=== PATIENT | female | born 1950 | race Caucasian/White ===

== ENCOUNTER → 2020-02-14 09:19 | Outpatient (CLI) | payer MEDICARE, OTHER, SELFPAY ==
[2020-02-14 10:19] LABS: COVID19 -Nasal RAPID Negative (Negative)
== END ==
PROVIDERS: Visit Provider Physician Assistant
DX: Z11.59 Encounter for screening for other viral diseases (principal)
CPT/HCPCS: 87635

== ENCOUNTER 2020-02-16 06:32 | Inpatient (IN) | payer MEDICARE, OTHER, SELFPAY ==
[2020-02-13 13:39] VITALS: BMI 27.9
[2020-02-15] VITALS (16 sets, daily range): BP systolic 121–161; BP diastolic 53–76; PULSE 68–91; RESP 8–16; TEMP 35.9–36.7; O2SAT 94–100; BMI 26.9
--- NOTE | 2020-02-15 | DI.RAD.S_ITS ---
PROCEDURE: XR LUMBAR SPINE 2-3V INDICATIONS: L4-L5 TLIF TECHNIQUE: 2 views of the lumbar spine were acquired. COMPARISON: [facility], CR, XR LUMBAR SPINE WITH OLBIQUES PLUS FLEXION EXTENSION, 11/08/2019, 10:41. [facility], MR, MR LUMBAR SPINE WITHOUT CONTRAST, 12/27/2019, 12:30. FINDINGS: Discectomy, placement of disc prosthesis and posterior fusion at L4-L5. There is grade 1 anterolisthesis of L4 on L5, unchanged. IMPRESSION: Expected postsurgical change. Dictated by: Shante Gant M.D. on 02/15/2020 at 12:35 Approved by: Shante Gant M.D. on 02/15/2020 at 12:37
[2020-02-15] MEDS: LACTATED RINGERS 1,000 ML 42 ML IV ×2 (07:19→09:25)
--- NOTE | 2020-02-15 07:22 | PM.PREOP ---
Pre-operative Note COVID-19 COVID-19 status: Negative Result date/Date tested (Pos, Neg/Pending): 02/14/20 Interval Note History & Physical reviewed/Exam performed by Physician: Yes Changes to H&P: No
--- NOTE | 2020-02-15 07:34 | SUR.OPER ---
Prone on spine table, head in foam head support, padded chest and pelvic supports, gel pad at knees, lower legs supported by pillows; nipples, genitalia and toes free of pressure, arms secured on foam padded arm boards at <90 degrees abduction. Tape over blanket at thigh secured to table.
[2020-02-15] MEDS: GABAPENTIN 600 MG TABLET 1200 MG PO ×2 (07:37→19:54)
[2020-02-15] MEDS: CEFAZOLIN 2 GM/100 ML FROZ.PIGGY IV ×4 (07:41→23:30)
--- NOTE | 2020-02-15 07:47 | P.OP_ITS ---
Operative Date/Time/Diagnoses Date of procedure: 02/15/20 Time of procedure: 11:51 Pre-op diagnosis: Lumbar stenosis with radiculopathy Lumbar spondylolisthesis Post-op diagnosis: same Procedure & Clinicians Procedure: L2-3, L3-4, L4-5 laminectomies L4-5 TLIF (posterior/posterior interbody fusion) with cage L4, L5 screws Iliac crest bone graft aspirate Use of microscope Placement of epidural catheter Same procedure as scheduled: Yes Indications: [age] year old female with intractable pain from stenosis. They had failed conservative management and requested operative intervention. Risks and benefits of surgery were discussed and appropriate consents were obtained. Surgeon: Mateo Torres [employer] Truck Driver: Bridget Mendez Anesthesia Type: General Operative Notes Findings: None Closure Type: primary Specimen(s): none sent Prosthetic devices, grafts, tissues, transplants, or devices: NuVasive MAS Reline screws Globus Rise cage Applied: catheter Estimated Blood Loss (mL): 50 Procedure in detail: The patient was brought to the operating room and intubated on the table. A time-out was performed. They were then rolled over to the well- padded Fadi table in the prone position. Preoperative antibiotics were given. The back was prepped and draped in the standard sterile fashion. Using fluoroscopy, a 4 cm longitudinal incision was made to the well marked right of the midline. We used Bovie to come down to and split the lumbodorsal fascia. Using fluoroscopy and monitoring, we then percutaneously placed Jamshidi needles down the pedicles of L4 and L5 on the Right side. These were changed out to guidewires and then we tapped and then placed the NuVasive MAS Reline screw shanks. We then opened up the retractors and used Bovie to clear up the posterolateral gutter as well as medially along the lamina to the spinous processes. A bur was used to decorticate the transverse processes. We brought in the microscope. Using a combination of bur and Kerrison rongeurs, a laminectomy was performed from the Right side at L4-5. We cleared over past the midline and carefully depressed the dura until we were able to decompress the opposite side. We cleared out the neural foramen. This completed the laminectomy at L4-5. This was separate and distinct from the TLIF approach as we were decompressing the canal and the nerves, specifically the exiting L4 nerve root as well as the traversing L5 and S1 nerve roots and the central canal. We then began the TLIF prep. A complete facetectomy was performed on this side at L4-5. We carefully cleaned up the remainder of the foramen until we could easily retract the exiting root as well as clearing medially below the dura and expose the disc space. The disc was prepped with bipolar and then an annulotomy was performed. We performed a diskectomy using a combination of paddles, angélica, pituitaries, and curettes. We distracted the disc using a paddle and locked the retractor in an open position. We then filled the disc space with Osteocel bone graft. We then placed the globus rise cage under fluoroscopy and then filled this in with more bone graft. The distraction on the retractor was released to compress down. This completed the posterior interbody fusion portion of the TLIF at L4-5. We then rotated the retractor up a level and exposed it. A laminectomy was performed with a bur and a Kerrison. We carefully reach across the canal and depressed the dura and decompressed the opposite side to clean up the entire central canal in all the traversing nerve roots and cleaned out the exiting L4 roots. We then moved the retractor up 1 more level and gutter exposure. We completed a laminectomy with a bur and Kerrison. We decompressed the central canal as well as the neural foramen. This level was exceedingly tight with sev ere facet hypertrophy there were almost touching each other and was the tightest of all of the 3 levels. Once this was done, we checked with a ball probe and everything was open. An epidural catheter was then prepped with 4 mL of 0.5% Marcaine, 1 mg Stadol, 4 mg Duramorph, and 100 mcg of fentanyl and placed in the spinal canal by carefully depressing the dura and advancing it 6 cm cephalad under the remaining lamina without resistance. We then placed the screw heads, mariana, and locked down the set screws. The wound was copiously irrigated. A small stab incision was made over the PSIS. We used a Jamshidi needle to aspirate several mL of bone marrow from the pelvis. This was mixed with the remaining Osteocel and combined with all of the locally harvested bone graft and placed in the posterolateral gutter for the posterior fusion of the TLIF at L4- 5. The muscle fascia was closed. The epidural catheter was then injected without resistance and the catheter was pulled. We then went to the opposite side. Again using fluoroscopy, a 3 cm incision was made and Bovie was used to come down to split the fascia. Using neural monitoring and fluoroscopy, Jamshidi needles were advanced down the pedicles of [] on the [] side. These were switched over guidewires, tapped, and screws placed. We then placed a mariana and locked the set screws on this side. The wound was irrigated. The fascia was closed. Vancomycin powder was placed in the wounds. The superficial and skin were closed. A sterile dressing was placed. The patient was then rolled over extubated and brought to recovery room without complications. Complications: none Post-operative Condition: stable Disposition: PACU Plan for aftercare: Inpatient. Anticipate 2-3 days. Up with physical therapy.
[2020-02-15] MEDS: THROMBIN (RECOMBINANT) 5,000 UNIT VIAL 5000 UNIT TOP (08:23)
[2020-02-15] MEDS: VANCOMYCIN 1,000 MG VIAL 1000 MG TOP (08:23)
[2020-02-15] MEDS: BUPIVACAINE 0.5% (PF) 4 ML, MORPHINE-PF 4 MG, BUTORPHANOL 1 MG, fentaNYL 100 MCG INJ (10:16)
[2020-02-15] MEDS: SODIUM CHLORIDE 0.9% 1,000 ML, GENTAMICIN 80 MG IRR (11:22)
[2020-02-15] MEDS: HYDROMORPHONE 2 MG INJ IV ×2 (12:42→13:00)
[2020-02-15] MEDS: OXYCODONE/ACETAMINOPHEN 5/325 TABLET 1 TAB PO (12:45)
[2020-02-15] MEDS: HYDROMORPHONE 0.5 MG INJ IV (14:07)
[2020-02-15] MEDS: LACTATED RINGERS 1,000 ML 125 ML IV ×2 (14:08→22:56)
--- NOTE | 2020-02-15 14:33 | PC.ADMIT ---
[address] [facility] Admission Note: Safe hand off from PACU. Patient is alert and oriented, VSS, pain 6/10. 0.5mg Dilaudid given at 1420. Patient reports pain is now 4/10. Lung sounds are clear bilaterally. Bowel tones are active in all quadrants. Dressing is clean/dry/intact, ice pack applied. Patient is on LR@125ml/hr. Patient is resting comfortably. Tolerated oral intake of tuna sandwich, ice chips and ice water. Patient was educated about the use of her call light, it is within reach, bed is low and locked, bed alarm activated. The patient,Cynthia Coe,70 y/o, was given written information regarding hospital policies, unit procedures and contact persons. Patient's smoking status: Never smoker. Vital Signs - 8 hr 02/15/20 06:58 02/15/20 12:07 02/15/20 12:12 Temperature 97.4 F L 97.5 F L Pulse Rate 90 86 86 Respiratory Rate 15 8 L 10 L Blood Pressure 150/76 H 146/65 H 121/55 L Pulse Oximetry 98 96 97 02/15/20 12:17 02/15/20 12:22 02/15/20 12:36 Temperature 97.0 F L 98.0 F Pulse Rate 89 89 89 Respiratory Rate 12 12 12 Blood Pressure 131/75 146/62 H 135/76 Pulse Oximetry 96 96 97
--- NOTE | 2020-02-15 16:28 | PT.IIE ---
Current Diagnoses Other forms of scoliosis, thoracolumbar region (02/15/20) Spondylolisthesis, lumbar region (02/15/20) Spinal stenosis, lumbar region with neurogenic claudication (02/15/20) Surgery Performed Operation Date: 02/15/20 07:45 Actual Procedures p L2-5 laminectomies w/ L45 instrumented fusion w/ bone graft - Mateo Torres MD Surgical History (Last Updated 02/13/20 @ 14:20 by Naila Murillo RN) History of arthroplasty of left knee (2018) History of hysterectomy (~1999) History of tonsillectomy and adenoidectomy Hx of bilateral cataract extraction (~2014) Hx of fusion of cervical spine (~1996) Medical History (Last Updated 02/13/20 @ 14:20 by Naila Murillo RN) Arthritis Compression fracture Easy bruisability History of Mohs micrographic surgery for skin cancer HLD (hyperlipidemia) HTN (hypertension) Hypothyroid Leg fracture, right Osteoarthritis PAC (premature atrial contraction) Sciatica Skin cancer TMJ (temporomandibular joint syndrome) Physical Therapy Inpatient Evaluation/Re-Eval M1 PT/OT-IP Prior Functional Status Start: 02/15/20 14:09 Freq: NEEDED Status: Active Protocol: Document 02/15/20 15:35 DE (Rec: 02/15/20 16:02 DE [id number]) Medical Review Prior Functional Status Medical History Reviewed Yes Diet/Fluid Consistency Regular Communication WNL. No deficits noted. Able to make needs known. Mobility and Gait Modified IND for all mobility and amb with use of SPC outside and FWW inside the house at baseline. Activities of Daily Living and IADL's IND for all ADLs and IADLs at baseline. Social History Household Members spouse Living Arrangements House Number of Floors (Floors) One Floor Number of Stairs To Enter/Railing? 2 JENNIFER with R railing. Home Environment Standard Height Toilet,Walk in Shower Home Equipment Front Wheel Walker,Straight Cane,Decay Control Operator Employment Status Retired Additional Social History Comment Pt lives with , who has MS. will be available full-time to assist at home. Cousin will be staying for a week to help. M2 PT-IP Current Condition Start: 02/15/20 14:09 Freq: NEEDED Status: Active Protocol: Document 02/15/20 15:35 DE (Rec: 02/15/20 16:02 DE [id number]) Physical Therapy Current Condition Current Condition Evaluation Date 02/15/20 Treatment Diagnosis L2-5 laminectomies, L4-5 TLIF; Difficulty in walking. Onset Date 02/15/20 Precautions Lumbar Precautions Log Roll,No Twisting,Limit Bending,Lifting Restriction of 10 lbs,Gait Belt above Incisional Area M3 PT-IP Subjective Start: 02/15/20 14:09 Freq: NEEDED Status: Active Protocol: Document 02/15/20 15:35 DE (Rec: 02/15/20 16:02 DE [id number]) Subjective Physical Therapy Visit Type Type Initial Evaluation Visit Start Time 14:58 Visit Stop Time 15:27 Total Visit Minutes 29 Notes SPT Fernando led session under direct supervision of PT Rea. Number of SIGNAL TIMER Visits 0 Physical Therapy Visit Comments Patient Comments Pt is agreeable to do PT. Therapy Pain Assessment Pain When Pain Assessed During Mobility Pain Present Pain Present Pain Reported Location back Intensity 7 Scale Used Numeric Description Aching Pain Behaviors Facial Grimacing,Wincing Pain Management Techniques Timing of Activity with Medications M4 PT-IP Mobility and Gait Start: 02/15/20 14:09 Freq: NEEDED Status: Active Protocol: Document 02/15/20 15:35 DE (Rec: 02/15/20 16:02 DE [id number]) PT-Bed Mobility Assessment Rolling Type of Rolling Log Rolling,Roll to Right Level of Assist Contact Guard Assistance Supine to Sit Supine to Sit Minimal Assistance,1 Person Assistance,Bedrails Sit to Supine Sit to Supine Minimal Assistance,1 Person Assistance,Bedrails PT-Transfer Assessment Sit to and From Stand Sit to and from Stand Contact Guard Assistance,Use of Upper Extremities Equipment Transfer Assistive Device Gait Belt,Front Wheeled Walker Orthotic/Prosthetic Devices or Brace: No Transfers Transfer Destination Bed Transfer Technique Amb with FWW Transfer Ability Level of Assist Contact Guard Assistance,Use of Upper Extremities Comments Mobility Comments Pt was inclined in bed upon arrival. Pt completed supine to sit at R EOB from flat bed using logroll technique with 1P min CAR STEREO INSTALLER. Pt performed sit to stand with FWW CGA. Pt then amb ~30 ft in the room and sat back down on R side EOB. Pt demonstrated antalgic step- through gait pattern with decreased stride length and decreased feet clearance. Pt also demonstrated decreased safety awareness and poor navigation possibly d/t drowsiness from surgery. Pt performed sit to supine using logroll technique with 1P min assist for lifting the legs. Call light placed within reach . Bed alarm activated. Gait Assessment Gait Gait Assistance Required: Contact Guard Assist Distance (Feet) 30 Assistive Devices Assistive Device Gait Belt,Front Wheeled Walker Orthotic/Prosthetic Devices or Brace: No Gait Deviations General Gait Pattern Antalgic,Decreased Stride Length,Decreased Feet Clearance Factors Limiting Gait Function Factors Limiting Gait Function Decreased Activity Tolerance, Decreased Strength,Limited Range of Motion,Pain,Poor Balance,Poor Safety Awareness Comments Gait Comments See mobility comments. Stair Climbing Assessment Comments Stair Climbing Comments Not assessed. PT-Balance Assessment Sitting Balance and Reactions Static Sitting Balance Ability Normal Dynamic Sitting Balance Ability Normal Standing Balance and Reactions Static Standing Balance Ability Good Dynamic Standing Balance Ability Good M5 PT-IP Objective Assessments Start: 02/15/20 14:09 Freq: NEEDED Status: Active Protocol: Document 02/15/20 15:35 DE (Rec: 02/15/20 16:02 VT [id number]) Orientation Orientation/Cognition Level of Alertness Lethargic Orientation Name,Age,Birthday,Month,Date, Year,Day of Week,Place, Situation Language Function Ability No Deficits Noted Safety Awareness Decreased Safety Awareness Memory Description No Deficits Noted Comments Pt demonstrated drowsiness. Gross Range of Motion Lower Extremity ROM Assessment Bilaterally Impaired Strength Lower Extremity Strength Assessment Bilaterally Impaired Coordination Assessment Gross Coordination Gross Coordination WNL Sensation Assessment Sensation Gross Sensation WNL Light Touch Intact Muscle Tone Muscle Tone WNL Yes M6 PT-IP Treatment Start: 02/15/20 14:09 Freq: NEEDED Status: Active Protocol: Document 02/15/20 15:35 DE (Rec: 02/15/20 16:02 VT [id number]) Physical Therapy Treatment Education Education Provided Precautions,Post-Op Packet, Safety Other Treatments Other Treatment Performed Provided education on precautions, safety, and role of PT. M7 PT-IP Assessment and Plan Start: 02/15/20 14:09 Freq: NEEDED Status: Active Protocol: Document 02/15/20 15:35 DE (Rec: 02/15/20 16:02 VT [id number]) PT Summary Assessment and Plan Potential Rehabilitation Potential Good Status of Condition at Evaluation Evolving Summary Impairments Pain,ROM,Strength,Balance,Bed Mobility,Transfers,Gait, Activity Tolerance Assessment Summary Cynthia is a 70 yo female POD0 s /p L2-5 laminectomies and L4-5 TLIF. At baseline, pt is modified IND with use of SPC outside and FWW inside the house. Pt is IND for all ADLs at baseline. On evaluation, pt required 1P min assist for supine <> sit and CGA for sit <> stand and amb with use of FWW. Pt demonstrated drowsiness throughout the session. Pt is not safe to d/c home at this time. Pt will need to improve activity tolerance and perform 2 steps with R railing going up before d/c. PT anticipates pt will d/c home with assistance once medically cleared. Goals Bed Mobility Goal Standby Assistance Transfer Goal Standby Assistance,Front Wheeled Walker Gait Goal Standby Assistance,Front Wheel Walker Gait Distance 200 Other Goals Pt will perform 2 steps with R railing going up SBA. Days to Meet Goals 5 Frequency of Treatment Frequency Of Treatment Twice a Day Treatment Plan Physical Therapy Treatment Plan Bed Mobility Training,Transfer Training,Gait Training, Therapeutic Exercise,Balance Retraining,Post Op Education, Discharge Planning,Hot or Cold Pack,Neuromuscular Re-ed Recommendations To Nursing Amount of Assist Needed 1 Person Assist Discharge Recommendations PT Discharge Recommendations Home with Assistance Transportation Needs at Discharge Private Vehicle Treatment was provided by Fernando Bejarano, SPT and supervised by Rea Lambert, PT. I personally reviewed this note and agree with its contents.
[2020-02-15] MEDS: OXYCODONE IR 5 MG TABLET PO ×2 (19:53→23:30)
[2020-02-15] MEDS: DOCUSATE 100 MG CAPSULE PO (19:54)
[2020-02-15] MEDS: SENNOSIDES 8.6 MG TABLET 17.2 MG PO (19:54)
[2020-02-15] MEDS: diphenhydrAMINE 25 MG TABLET PO (20:03)
--- NOTE | 2020-02-15 22:19 | PC.NURSE ---
Pt presented w/ lower SPO2 on RA d/t narcotic administration, maintained prior administration of O2 NC 3L/min to get sats above 90%. Removed from O2 when SPO2 stabilized over 95% at room air. Pt GCS 15, able to arouse to voice and stay awake at any time. Pain controlled by medication. Epidural, no drain, dressing CDI, +CSM. No cardiovascular or respiratory distress. AOx4. Saw PT prior to shift, 1x assist w/ walker. Hx htn, BP elevated but stable. FC present, draining.
[2020-02-15] MEDS: hydrOXYzine pamoate 25 MG CAPSULE PO (23:40)
--- NOTE | 2020-02-15 23:52 | PC.NURSE ---
Addendum entered by Cynthia Jimenez R.N. 02/16/20 05:37: Up to chair with walker and 1 assist. States pain is 3-4/10 after movement so medicated with Oxycodone. Addendum entered by Cynthia Jimenez R.N. 02/16/20 02:34: Still having 4/10 pain so medicated with Oxycodone at this time. Addendum entered by Cynthia Jimenez R.N. 02/16/20 01:52: Complains of 5/10 back pain and too early to give additional Oxycodone so medicated with IV Dilaudid, repositioned and ice applied to back. Original Note: Patient is alert and oriented but very anxious wanting things done a specific way and getting upset when that does not happen. Breath sounds CTA with RA sat of 99%; on continuous oximetry. HRR. Denies nausea. BT present but denies flatus as yet. Indwelling catheter is patent; urine is clear yellow. Able to move self in bed. Dressing to back intact with shadow drainage noted. Complains of 4-5/10 pain in right hip and was medicated with Oxycodone + Vistaril and ice applied to back/hip. Chronic tingling in right foot/leg unchanged from pre-op. CMS is otherwise intact. Wearing bilateral calf SCD's. Fall risk score is moderate and bed alarm is activated.
[2020-02-16] VITALS (11 sets, daily range): BP systolic 108–137; BP diastolic 43–61; PULSE 88–124; RESP 16–18; TEMP 35.9–38.3; O2SAT 93–98
[2020-02-16] MEDS: HYDROMORPHONE 0.5 MG INJ 0.2 MG IV (01:48)
[2020-02-16] MEDS: OXYCODONE IR 5 MG TABLET PO ×3 (02:31→15:50)
[2020-02-16] MEDS: LEVOTHYROXINE 137 MCG TABLET PO (05:35)
[2020-02-16 05:51] LABS: Hematocrit 32.9 % (36-46); Hemoglobin 11.3 g/dL (12.0-16.0)
--- NOTE | 2020-02-16 07:24 | PM.PNPO.1 ---
Subjective Subjective Date Patient Seen: 02/16/20 Time Patient Seen: 07:24 Interval history: She is doing very well. She was already up with physical therapy yesterday afternoon. Pain is sore across the incision site of the legs feel normal again. Exam Vital Signs (past 8 hours): - 02/16/20 00:00 02/16/20 05:32 02/16/20 05:39 Temperature 96.6 F L 97.4 F L Pulse Rate 88 101 H Respiratory Rate 16 16 Blood Pressure 137/61 125/51 L Pulse Oximetry 98 95 98 Oxygen Delivery Method Room Air Oxygen Flow Rate 0 Const Orientation: alert and oriented x3 Back/Spine/Pelvis Other: Moderate drainage at the bottom of the dressing. 5/5 motor both lower extremities. Objective Labs Result Diagrams: 02/16/20 05:35 Labs: Laboratory Results - last 24 hr 02/16/20 05:35 Hgb 11.3 L Hct 32.9 L PFSH Medical History (Updated 02/13/20 @ 14:20 by Naila Murillo RN) Arthritis Compression fracture Easy bruisability History of Mohs micrographic surgery for skin cancer HLD (hyperlipidemia) HTN (hypertension) Hypothyroid Leg fracture, right Osteoarthritis PAC (premature atrial contraction) Sciatica Skin cancer TMJ (temporomandibular joint syndrome) Surgical History (Updated 02/13/20 @ 14:20 by Naila Murillo RN) History of arthroplasty of left knee (2018) History of hysterectomy (~1999) History of tonsillectomy and adenoidectomy Hx of bilateral cataract extraction (~2014) Hx of fusion of cervical spine (~1996) Social History household members: spouse Smoking Status: Never smoker alcohol intake: current Assessment & Plan Post-op Postoperative Procedures: Procedures Operation Date: 02/15/20 07:45 Actual Procedures Side Surgeon p L2-5 laminectomies w/ L45 instrumented fusion w/ bone graft Mateo Torres MD She is doing very well. Mobilize again today with physical therapy. Anticipate discharge home tomorrow. Quality VTE Deep Vein Thrombosis/Pulmonary Embolism Present on Admission: No
[2020-02-16] MEDS: SIMVASTATIN 20 MG TABLET 10 MG PO (08:41)
[2020-02-16] MEDS: FLUTICASONE 120 SPRAY/16 GM SPRAY.SUSP NASAL (08:41)
[2020-02-16] MEDS: GABAPENTIN 600 MG TABLET 1200 MG PO ×2 (08:42→19:56)
[2020-02-16] MEDS: DOCUSATE 100 MG CAPSULE PO ×2 (08:42→19:55)
[2020-02-16] MEDS: OXYCODONE IR 5 MG TABLET 10 MG PO ×4 (08:42→22:54)
[2020-02-16] MEDS: buPROPion XL 150 MG TAB PO (08:42)
[2020-02-16] MEDS: SODIUM CHLORIDE 0.9% 1,000 ML 1000 ML IV (09:59)
--- NOTE | 2020-02-16 10:37 | CM.DANOTE ---
Discharge Planning/Care Management CM Discharge Assessment Start: 02/16/20 10:37 Freq: Status: Active Protocol: Document 02/16/20 10:37 ITV (Rec: 02/16/20 10:37 ITV [id number]) Discharge Planning Assessment Advance Directives? Yes Advance Directives on File No History Provided By Patient,Medical Record Prior Living Arrangements House Household Members spouse Independent with ADL's Yes Is patient alert and oriented? Yes Discharge Plan Home Pre-Anesthesia Assessment Start: 02/13/20 13:39 Freq: Status: Complete Protocol: Document 02/13/20 13:39 CAB (Rec: 02/13/20 14:37 CAB [id number]) Pre-Anesthesia Assessment Patient Information Reviewed Via Phone Assessment Assessment Completed With Patient Diagnostic Results BMP/CMP,CBC,EKG Comment Outside labs/EKG scanned, COVID screen @ 02/13 Primary Care Provider Huang Martinez Medical Clearance Received Yes Seen Specialist in Last 12 Months Yes Specialist Seen Orthopedist Comment PCP clearance scanned Primary Language Turkish Housekeeping Manager Required No Height 165.1 cm Weight 76.204 kg Body Mass Index (BMI) 27.9 Hearing Ability Normal Visual Assist Magnifying Glass Dentition Type Teeth, Natural Present Barriers to Learning None Hx Anesthesia Reactions Yes: Horrible constipation after anesthesia Hx Family Anesthesia Reaction No Hx Malignant Hyperthermia No Hx Blood Transfusions No Anesthesia Review Requested No Power Distributor No alcohol intake current alcohol intake frequency holidays/special occasions only Smoking Status Never smoker Substance Use Type does not use Pain Present Pain Reported Musculoskeletal Symptoms Abnormal Gait,Back Pain, Difficulty Walking,Radiating Pain into Limb History of Falling (Recent or History of No ) Patient is completely paralyzed or No completely immobile Prosthesis or Orthotic Device Cane,Front Wheel Walker Mental Status Oriented to own ability Is patient on oxygen? No Does patient have GRAVES/SOB No Hx Sleep Apnea No Currently Taking a Beta Lakeshia No Can You Climb a Flight of Stairs Without Yes SOB Hx Chest Pain No Hx SOB No Hx Syncope or Dizziness No Anti-Coagulant Therapy No Has a Mold Maintenance Technician No Cardiac Testing No Hx Pacemaker/ICD No Pacemaker Rep Required? No Cardiac Clearance Received Not Applicable Diet Type At Home Regular dysphagia No Gastrointestinal Symptoms Constipation Urinary Catheter Present No Hx Urinary Self Catheterization No Diabetes No Patient No Lactating No Presence of External or Internal Medical Yes: Left knee, tay eye lens Devices Have you had any close contact with No someone diagnosed with COVID-19? Marital Status Lives With spouse Prior Living Arrangements House Number of Floors (Floors) One Floor Support System Spouse Does the Patient Have Assistance After Yes: has MS, cousin Surgery will stay to assist w/care Patient Discharge Plan Description Return Home Comment Pt advised 2-3 day length of stay per surgeon Feels Safe in Current Environment Yes Been Physically Hurt or Threatened By a No Person in Current Environment Do you have thoughts of harming yourself None or others? Are you currently considering suicide? No Do you have a plan to hurt yourself or No Plan others? Do You Have Any Spiritual Beliefs That No May Affect Your HC Choices? Do You Have Any Cultural Practices That No May Affect Your HC Choices? Comment Presbyterian Who Can We Speak to About Patient's Care Family, friends Identifying Code for Release of Patient Declines to issue Information Health Care Proxy/Next of Kin Berry () Health Care Proxy Emergency Contact Name Berry () Emergency Contact Advance Directives? Yes Advance Directives on File No Requested Patient Bring Advanced Yes Directives DOS Power of Group Practice Pediatrician Yes Power of Group Practice Pediatrician Name Berry () Power of Group Practice Pediatrician PAC Instructions Durable medical equipment, Medications to take/avoid, Nasal antibiotic,No ETOH/ petroleum product on skin DOS, NPO,Post-op transportation,Pre -surgical wash,Sensory aids, Sturdy shoes/comfortable clothes,Do not bring valuables and remove jewelry
--- NOTE | 2020-02-16 10:38 | CM.DANOTE ---
Addendum entered by Zo Mata LPN 02/16/20 11:33: Met with pt and introduced self and role. Pt confirms that her cousin Li will be staying with her to help after surgery. She says her , who carries a dx of MS is also very able to help her but is not her designated visitor as they all feel his health issues dictate that he stay home. Li will be here later today. She has not worked with the PT/OT team yet for caregiver training. Pt says she does need a FWW for home as the one she has now is very old and belonged to her . She requests that this be issues from the PT consignment closet and be billed to her insurance. Will obtain order and follow prn to assist with any other d/c needs that may arise. P: at this time: home tomorrow as per above. Original Note: Discharge Planning/Care Management DCP: assessment: case received, EMR reviewed. Pt is a 70 year old female who admitted yesterday for a scheduled spinal surgery/lumbar area. Surgeon: Dr. Torres Payer: Medicare and [employer] PCP: [facility] PT and OT are working with pt. Dr. Torres saw pt today and anticipates she will be ready for d/c by tomorrow. Will check in now with pt and follow prn. CM Discharge Assessment Start: 02/16/20 10:37 Freq: Status: Active Protocol: Document 02/16/20 10:37 ITV (Rec: 02/16/20 10:37 ITV [id number]) Discharge Planning Assessment Advance Directives? Yes Advance Directives on File No History Provided By Patient,Medical Record Prior Living Arrangements House Household Members spouse Independent with ADL's Yes Is patient alert and oriented? Yes Discharge Plan Home Pre-Anesthesia Assessment Start: 02/13/20 13:39 Freq: Status: Complete Protocol: Document 02/13/20 13:39 CAB (Rec: 02/13/20 14:37 CAB [id number]) Pre-Anesthesia Assessment Patient Information Reviewed Via Phone Assessment Assessment Completed With Patient Diagnostic Results BMP/CMP,CBC,EKG Comment Outside labs/EKG scanned, COVID screen @ 02/13 Primary Care Provider Huang Martinez Medical Clearance Received Yes Seen Specialist in Last 12 Months Yes Specialist Seen Orthopedist Comment PCP clearance scanned Primary Language French Supervisor Metal Furniture Assembly Required No Height 165.1 cm Weight 76.204 kg Body Mass Index (BMI) 27.9 Hearing Ability Normal Visual Assist Magnifying Glass Dentition Type Teeth, Natural Present Barriers to Learning None Hx Anesthesia Reactions Yes: Horrible constipation after anesthesia Hx Family Anesthesia Reaction No Hx Malignant Hyperthermia No Hx Blood Transfusions No Anesthesia Review Requested No Legislative Aide No alcohol intake current alcohol intake frequency holidays/special occasions only Smoking Status Never smoker Substance Use Type does not use Pain Present Pain Reported Musculoskeletal Symptoms Abnormal Gait,Back Pain, Difficulty Walking,Radiating Pain into Limb History of Falling (Recent or History of No ) Patient is completely paralyzed or No completely immobile Prosthesis or Orthotic Device Cane,Front Wheel Walker Mental Status Oriented to own ability Is patient on oxygen? No Does patient have GRAVES/SOB No Hx Sleep Apnea No Currently Taking a Beta Lakeshia No Can You Climb a Flight of Stairs Without Yes SOB Hx Chest Pain No Hx SOB No Hx Syncope or Dizziness No Anti-Coagulant Therapy No Has a Trust Vault Clerk No Cardiac Testing No Hx Pacemaker/ICD No Pacemaker Rep Required? No Cardiac Clearance Received Not Applicable Diet Type At Home Regular dysphagia No Gastrointestinal Symptoms Constipation Urinary Catheter Present No Hx Urinary Self Catheterization No Diabetes No Patient No Lactating No Presence of External or Internal Medical Yes: Left knee, tay eye lens Devices Have you had any close contact with No someone diagnosed with COVID-19? Marital Status Lives With spouse Prior Living Arrangements House Number of Floors (Floors) One Floor Support System Spouse Does the Patient Have Assistance After Yes: has MS, cousin Surgery will stay to assist w/care Patient Discharge Plan Description Return Home Comment Pt advised 2-3 day length of stay per surgeon Feels Safe in Current Environment Yes Been Physically Hurt or Threatened By a No Person in Current Environment Do you have thoughts of harming yourself None or others? Are you currently considering suicide? No Do you have a plan to hurt yourself or No Plan others? Do You Have Any Spiritual Beliefs That No May Affect Your HC Choices? Do You Have Any Cultural Practices That No May Affect Your HC Choices? Comment Presbyterian Who Can We Speak to About Patient's Care Family, friends Identifying Code for Release of Patient Declines to issue Information Health Care Proxy/Next of Kin Berry () Health Care Proxy Emergency Contact Name Berry () Emergency Contact Advance Directives? Yes Advance Directives on File No Requested Patient Bring Advanced Yes Directives DOS Power of Laborer Pipelines Yes Power of Laborer Pipelines Name Berry () Power of Laborer Pipelines PAC Instructions Durable medical equipment, Medications to take/avoid, Nasal antibiotic,No ETOH/ petroleum product on skin DOS, NPO,Post-op transportation,Pre -surgical wash,Sensory aids, Sturdy shoes/comfortable clothes,Do not bring valuables and remove jewelry
--- NOTE | 2020-02-16 11:22 | PC.NURSE ---
Addendum entered by Alda Velasquez R.N. 02/16/20 12:11: updated dr. jain on bp and hr still tachy 121. dr. jain ordering hospitalist consult, paged dr cowan overhead for to drXiomara consult. Original Note: SHIFT SUMMARY: [id number]: NOTED PATIENT'S HEART RATE ELEVATED AND SOMEWHAT IRREGULAR. FACE FLUSHED. BP 115/43. PATIENT ASYMPTOMATIC. NOTIFIED Unique MATHUR OKAY TO PLACE PATIENT ON TELE AND OBTAIN EKG IF TACHY OR IRREGULAR RHYTHM. PATIENT SITTING IN RECLINER, STATES SHE WAS KNOWN TO HAVE AN IRREGULAR RATED PRIOR TO SURGERY. PRINTED PREVIOUS EKG SHOWED SINUS RHYTHM WITH RATE VARIATION. HR TACHY 120 PER TELE. OBTAINED EKG WHICH SHOWED S. TACH W/ OCC SUPRAVENTRICULAR PREMATURE COMPLEXES AND NON-SPECIFIC ST & T WAVE ABNORMALITY. CALLED DR. JAIN AT CLINIC AND NOTIFIED OF SAME. GIVEN ASYMPTOMATIC, ORDER TO GIVE NS BOLUS AND IF TACHYCARDIA NOT RESOLVED AFTERWARDS, THIS PROCUREMENT FORESTER TO CALL BACK. BOLUS ADMINISTERED PER ORDERS. PATIENT EXPRESSES IRRITATION AT ADDITIONAL INTERVENTIONS NOTED ABOVE, STATES I THINK YOU ARE MAKING TOO BIG A DEAL ABOUT THIS. COMPLAINS ABOUT TELE STICKERS, C/O EKG STICKERS, C/O IV BEING POSITIONAL AND DIFFICULTY TXTING. MICKIE WAS DC'D AT START OF SHIFT 0745. PATIENT C/O NOW THAT RECEIVING BOLUS, WILL HAVE TO GET OOB TO URINATE. 1110: PATIENT SET OFF BED ALARM TRYING TO GET OOB. ASSISTED TO BR W/ FWW, POOR SAFETY AWARENESS, RELUCTANT TO FOLLOW DIRECTIONS. TRYING TO BACK UP WITH WALKER IN SIDEWAYS MANNER LENGTH OF BR TO TOILET. JUST LET ME DO THIS BY MYSELF. OFFERED PATIENT RECLINER VS BED. PREFERS BED. PATIENT ANGRY WHEN ASKED IF SHE UNDERSTANDS PRECAUTIONS FOR GETTING BACK INTO BED. REPLIES WITH ABRUPT YES, BUT I DON'T WANT TO DO THAT RIGHT NOW, I JUST WANT TO SIT AT SIDE OF BED. ALLOWED PATIENT SAME, BED ALARM ON. PATIENT LAY BACK DOWN WITHOUT ASSISTANCE JUST AFTER THIS PROCUREMENT FORESTER LEFT RM. OCCUPATIONAL THERAPY IN TO SEE PATIENT AT THIS TIME..
--- NOTE | 2020-02-16 11:41 | PT-IP ANOTE ---
This PT was informed from rounds to put patient on hold for PT this morning d/t elevated resting HR at 120s. Will check with medical team again this afternoon for appropriateness for PT.
--- NOTE | 2020-02-16 11:45 | OT.IP.EVAL ---
Current Diagnoses Other forms of scoliosis, thoracolumbar region (02/15/20) Spondylolisthesis, lumbar region (02/15/20) Spinal stenosis, lumbar region with neurogenic claudication (02/15/20) Surgery Performed Operation Date: 02/15/20 07:45 Actual Procedures p L2-5 laminectomies w/ L45 instrumented fusion w/ bone graft - Mateo Torres MD Past Medical History (Last Updated 02/13/20 @ 14:20 by Naila Murillo, RN) Arthritis Compression fracture Easy bruisability History of Mohs micrographic surgery for skin cancer HLD (hyperlipidemia) HTN (hypertension) Hypothyroid Leg fracture, right Osteoarthritis PAC (premature atrial contraction) Sciatica Skin cancer TMJ (temporomandibular joint syndrome) Surgical History (Last Updated 02/13/20 @ 14:20 by Naila Murillo RN) History of arthroplasty of left knee (2018) History of hysterectomy (~1999) History of tonsillectomy and adenoidectomy Hx of bilateral cataract extraction (~2014) Hx of fusion of cervical spine (~1996) Occupational Therapy Inpatient Evaluation/Re-Eval M1 PT/OT-IP Prior Functional Status Start: 02/15/20 14:09 Freq: NEEDED Status: Active Protocol: Document 02/16/20 12:55 CGR (Rec: 02/16/20 13:15 CGR [id number]) Medical Review Prior Functional Status Medical History Reviewed Yes Diet/Fluid Consistency Regular Communication WNL. No deficits noted. Able to make needs known. Mobility and Gait Modified IND for all mobility and amb with use of SPC outside and FWW inside the house at baseline. Activities of Daily Living and IADL's IND for all ADLs and IADLs at baseline. Prior Functional Level (Other details) PLOF and home set up obtained from P.T. notes and confirmed with patient. Social History Household Members spouse Living Arrangements House Number of Floors (Floors) One Floor Number of Stairs To Enter/Railing? 2 steps wtih railing Home Environment Standard Height Toilet,Walk in Shower Home Equipment Front Wheel Walker,Straight Cane,Unhairer Employment Status Retired Additional Social History Comment Pt's has MS but will be home upon pt's discharge. Pt's cousin plans to come to assist for ~1 week. M2 OT-IP Current Condition Start: 02/16/20 12:55 Freq: Status: Active Protocol: Document 02/16/20 12:55 CGR (Rec: 02/16/20 13:15 CGR [email or web address]) Occupational Therapy Current Condition Current Condition Evaluation Date 02/16/20 Treatment Diagnosis L2-5 Lami Diagnosis Onset Date 02/15/20 Post Operative Precautions Lumbar Precautions Log Roll,No Twisting,Limit Bending,Lifting Restriction of 10 lbs,Gait Belt above Incisional Area M3 OT- IP Subjective and Pain Start: 02/16/20 12:55 Freq: Status: Active Protocol: Document 02/16/20 12:55 CGR (Rec: 02/16/20 13:15 CGR [email or web address]) OT- Subjective Occupational Therapy Visit Type Type Initial Evaluation Visit Start Time 11:17 Visit Stop Time 11:45 Total Visit Minutes 28 Notes Per nursing, pt with increased HR this AM. Recieved bolus but did not improve HR. Nursing requesting that OT see pt to educate pt on back precautions as pt is not following precautions with nursing staff. OT Pain Assessment Pain When Pain Assessed During Mobility Pain Present Pain Present Pain Reported Location back Intensity 5 Scale Used Numeric (0 - 10) Management Techniques Distraction,Modification of Treatment,Re-positioning M4 OT- IP ADL's Start: 02/16/20 12:55 Freq: Status: Active Protocol: Document 02/16/20 12:55 CGR (Rec: 02/16/20 13:15 CGR [email or web address]) OT [id number] Comments OT Self-Feeding Comments Not meal time OT ADL-Grooming Comments OT Grooming Comments Not performed, pt declined OT ADL-Oral Care Comments Oral Care Comments Not performed, pt declined OT ADL-Dressing General Eval Lower Body Dressing Ability Moderate Assistance Areas Needing Assistance Retrieving/Set-up of Clothing, Socks Comments OT Dressing Comments Pt was able to don sock to the RLE supine in bed but unable to peform to her LLE. OT ADL-Toileting General Evaluation Toileting Ability Standby Assistance Devices Toileting Assistive Devices Grab Bars Comments OT Toileting Comments For urination seated on toielt . OT ADL-Bathing Comments OT Bathing Comments Not performed on this date M5 OT- IP IADL's Start: 02/16/20 12:55 Freq: Status: Active Protocol: Document 02/16/20 12:55 CGR (Rec: 02/16/20 13:15 CGR [email or web address]) OT-Instrumental Activities of Daily Living Deficits IADL Deficits Identified Deficits Home Safety Awareness Awareness of Need for Assistance at Home Decreased Awareness Ability to Problem Solve Emergency Able to Problem Solve Situations M6 OT- IP Functional Cognition Start: 02/16/20 12:55 Freq: Status: Active Protocol: Document 02/16/20 12:55 CGR (Rec: 02/16/20 13:15 CGR [email or web address]) Cognitive Factors Limiting Selfcare Function Cognitive Ability Level of Alertness Alert Patient Orientation Name,Age,Birthday,Month,Date, Year,Day of Week,Place, Situation Attention Span Ability Capable of Focused Attention, Capable of Sustained Attention Ability to Follow Commands Able to Follow One Step Commands with Increased Time, Able to Follow One Step Commands with Repetition Cognitive Comments Cognitive Assessment Comments Pt displays inconsistencies with her memory stating Im confused, you said I shouldn't do a log roll although this marketing copywriter had been stating the need to perform a logroll for bed mobility. Pt is unlikely to be agreeable to a cognitive assessment. OT- Vision and Hearing OT- Hearing Assessment OT- Hearing Assessment WFL OT- Vision Assessment Visual Acuity WFL Visual Attentiveness WFL Occular Pursuits WFL Visual Convergence WFL M7 OT- IP Mobility and Balance Start: 02/16/20 12:55 Freq: Status: Active Protocol: Document 02/16/20 12:55 CGR (Rec: 02/16/20 13:15 CGR [email or web address]) OT- Bed Mobility Assessment Rolling Type of Rolling Log Rolling Level of Assistance Minimal Assistance Supine to Sit Supine to Sit Assist Standby Assistance Sit to Supine Sit to Supine Assist Standby Assistance Scooting Scooting to Edge of Bed Standby Assistance OT-Transfer Assessment Sit to and From Stand Sit to and from Stand Contact Guard Assistance Transfers Transfer Ability Contact Guard Assistance Technique Transfer Destination Bed,Toilet Transfer Technique Stand Step Pivot Devices Transfer Assistive Devices Gait Belt,Front Wheeled Walker Comments Mobility Comments Pt needs VC for proper use of the walker. Pt is impulsive with poor safety awareness. OT- Gait Assessment Gait Gait Assistance Required: Contact Guard Assist Assistive Devices Assistive Device Gait Belt,Front Wheeled Walker OT- Balance Assessment Sitting Balance and Reactions Static Sitting Balance Ability Good Dynamic Sitting Balance Ability Fair M8 OT- IP Objective Assessments Start: 02/16/20 12:55 Freq: Status: Active Protocol: Document 02/16/20 12:55 CGR (Rec: 02/16/20 13:15 CGR [email or web address]) OT Gross Range of Motion Upper Extremity Range of Motion Assessment Within Functional Limits OT Strength Upper Extremity Strength Assessment Within Functional Limits OT- Coordination Assessment Upper Extremity Finger to Nose Test Within Functional Limits Finger Tapping Test Within Functional Limits OT-Muscle Tone Assessment Muscle Tone WNL Yes OT Sensation Assessment Edema Edema Absent M9 OT- IP Assessment and Plan Start: 02/16/20 12:55 Freq: Status: Active Protocol: Document 02/16/20 12:55 CGR (Rec: 02/16/20 13:15 CGR [email or web address]) OT Summary Assessment and Plan Potential Rehabilitation Potential Good Analytic Complexity at Evaluation Low Summary OT Impairments Pain,Functional Cognition, Functional Mobility,Toileting, Bathing,Toilet Transfers, Shower Transfers,Activity Tolerance Progress Towards Goals Slow Progress due to Pain Assessment Summary Pt presents as a low complexity evaluation s/p admit for L2-5 Lami. Pt presents with pain and appears agitated with staff. Pt declined further activity but was agreeable to basic assessment. Pt agreeable to shower and LB dressing training tomorrow. Recommend d /c to home with family assist. Goals Grooming Goal Independent Dressing Goal Independent Toileting Goal Independent Bathing Goal Independent Toilet Transfer Goal Independent Shower Transfer Goal Independent Frequency of Treatment Frequency Of Treatment Once a Day Treatment Plan OT Treatment Plan ADL Training,Functional Cognition Training,Functional Mobility,Patient/Family Education,Discharge Planning Other Treatment Recommendations and Next shower and LB dressing Treatment Focus training. Discharge Recommendations OT Discharge Recommendations Home with Assistance Home Equipment Needs TBD Transportation Needs at Discharge Private Vehicle
[2020-02-16] MEDS: LACTATED RINGERS 1,000 ML 125 ML IV (12:29)
[2020-02-16 12:37] LABS: Add Manual Diff / Slide Review NO; Basophils Absolute Auto 100 /uL (0-100); Basophils Percent Auto 0.4 % (0-2); Eosinophils Absolute Auto 0 /uL (0-450); Eosinophils Percent Auto 0.1 % (2-4); Hematocrit 31.1 % (36-46); Hemoglobin 10.6 g/dL (12.0-16.0); Lymphocytes Absolute Auto 1100 /uL (1100-4500); Lymphocytes Percent Auto 8.1 % (25-40); Mean Corpuscular Hemoglobin 31.5 PG (26-34); Mean Corpuscular Volume 92.5 fL (80-100); Monocytes Absolute Auto 1500 /uL (0-900); Monocytes Percent Auto 10.7 % (3-14); Neutrophils Absolute Auto 11300 /uL (1500-7000); Neutrophils Percent Auto 80.7 % (50-75); Platelet Count 208 X10^3/uL (150-400); Red Blood Cell Count 3.36 X10^6/uL (4.0-5.2)
[2020-02-16 12:48] LABS: Alanine Aminotransferase 17 IU/L (<35); Albumin 3.2 g/dL (3.5-5.0); Albumin Globulin Ratio 1.3 (1.0-2.8); Alkaline Phosphatase 51 U/L (38-126); Aspartate Aminotransferase 44 IU/L (14-36); Bilirubin Total 0.5 mg/dL (0.2-1.3); Blood Urea Nitrogen 12 mg/dL (7-17); Carbon Dioxide 30 mmol/L (22-32); Chloride 102 mmol/L (98-107); Creatine Kinase 750 U/L (30-135); Estimated Glomerular Filt Rate > 60.0 mL/min (>60); Globulin 2.5 g/dL (1.7-4.1); Glucose 118 mg/dL (80-110); HEMOLYSIS < 15 (0-50); Magnesium 1.7 mg/dL (1.6-2.3); Potassium 3.8 mmol/L (3.4-5.1); Sodium 134 mmol/L (137-145); Total Protein 5.7 g/dL (6.3-8.2)
[2020-02-16 12:59] LABS: Troponin I 0.016 ng/mL (0.01-0.034)
[2020-02-16 13:03] LABS: CKMB % Relative Index 0.8 % (1.5-5.0); Creatine Kinase MB 6.27 ng/mL (<2.37)
[2020-02-16] MEDS: MAGNESIUM HYDROXIDE 30 ML UDC PO (13:31)
[2020-02-16] MEDS: HYDROMORPHONE 0.5 MG INJ IV (13:31)
[2020-02-16] MEDS: MAGNESIUM CHLORIDE 64 MG TABLET PO (13:32)
[2020-02-16] MEDS: POTASSIUM CHLORIDE 20 MEQ TAB 40 MEQ PO (13:32)
[2020-02-16 13:35] LABS: TSH w/ Reflex to FT4 0.91 uIU/mL (0.47-4.68)
--- NOTE | 2020-02-16 13:43 | P.CONS_ITS ---
History of Present Illness Consult details Date Patient Seen: 02/16/20 Chief complaint: OPB Requesting provider: Mateo Torres Narrative: Cynthia Coe is a 70-year-old female with a past medical history significant for hypertension, hyperlipidemia, hypothyroidism, depression and anxiety, chronic constipation and lumbar stenosis with radiculopathy who had elective lumbar laminectomies L2 through L5 and TLIF L4-L5 with epidural. Medicine team was consulted due to sinus tachycardia. The patient is resting in bed and appears mildly uncomfortable. She reports that her back pain is severe and not well controlled. She reports resolution of her radicular leg and foot pain. She is mildly anxious. She has adequate blood pressure with SBP in 120s. She remains in sinus tachycardia with heart rate 110-120's. She has had minimal blood loss and hemoglobin has trended down now 10.6 without preoperative hemoglobin for baseline comparison. She has received IV fluids and does not appear dry or dehydrated. Her electrolytes are within normal limits with potassium 3.8 and magnesium 1.7. Her TSH is normal at 0.91 and she is adequately replaced on levothyroxine. Her troponin is within normal limits at 0.016. EKG demonstrates sinus tachycardia with nonspecific ST changes that are likely due to fast heart rate and baseline artifact. She denies headache, chest pain, shortness of breath, cough, abdominal pain, nausea, vomiting, fever, chills, dysuria, or diarrhea. She reports chronic constipation and a bowel regimen has been implemented. She is on Percocet at home and takes 5-325 mg 3 times a day. Meds Home Medications and Allergies Home Medications Medication Instructions Recorded Confirmed Type bupropion HCl 150 mg PO QAM 02/13/20 02/15/20 History felodipine 2.5 mg PO DAILY 02/13/20 02/15/20 History fluticasone propionate 2 spray INTRANASAL DAILY 02/13/20 02/15/20 History gabapentin 1,200 mg PO BID 02/13/20 02/15/20 History levothyroxine 137 mcg PO DAILY 02/13/20 02/15/20 History lidocaine 1.5 patch TOPICAL DAILY 02/13/20 02/15/20 History oxycodone-acetaminophen [Percocet] 1 tab PO TID 02/13/20 02/15/20 History simvastatin 10 mg PO DAILY 02/13/20 02/15/20 History vitamin A-vitamin C-vit E-min 1 tab PO DAILY 02/13/20 02/15/20 History docusate sodium [DOK] 100 mg PO BID PRN #30 cap 02/16/20 Rx hydroxyzine pamoate 25 mg PO Q4HR PRN #20 cap 02/16/20 Rx oxycodone See Rx Instructions .ROUTE 02/16/20 Rx .COMPLEX PRN #35 tab Allergies Allergy/AdvReac Type Severity Reaction Status Date / Time Sulfa (Sulfonamide Allergy Severe I blew Verified 02/15/20 06:56 Antibiotics) up as a kid Review of Systems Review of Systems Narrative: A 10 system comprehensive review of systems was conducted with the patient and found to be negative except as above in the History of Present Illness. Exam Vital Signs (past 8 hours): - 02/16/20 08:00 02/16/20 09:00 02/16/20 11:42 Temperature 98.8 F 98.8 F Pulse Rate 112 H 121 H 121 H Respiratory Rate 16 18 Blood Pressure 117/52 L 115/43 L 126/49 L Pulse Oximetry 96 97 Oxygen Delivery Method Room Air Oxygen Flow Rate 0 Narrative Exam Narrative: General: Older female lying in bed and appears uncomfortable but in no acute distress, well-developed, well-nourished, mildly anxious otherwise appropriately interactive. HEENT: Normocephalic, atraumatic. External ears without defect. Pupils equal, round, and reactive to light. Anicteric sclerae, moist conjunctivae, and no lid lag. Oropharynx free of erythema and cobble stoning with moist mucosa. Neck: Supple with full range of motion. No jugular venous distension. No lymphadenopathy or thyromegaly. Cardiovascular: Regular rhythm, mildly tachycardic, without murmurs, rubs, or gallops appreciated. Pulmonary: Clear to auscultation bilaterally without crackles, wheezes, or rhonchi. Normal respiratory effort with no use of accessory muscles. Abdomen: Soft, bowel sounds present, nontender, nondistended. No hepatosplenomegaly or masses appreciated. Extremities: No clubbing, cyanosis, or edema. Skin: Normal temperature, turgor, and texture; no rash, ulcers, or subcutaneous nodules appreciated. Neurological: Cranial nerves grossly intact. No saddle anesthesia. Psychiatric: Mildly anxious mood and normal affect. Alert and oriented to person, place, and time. Objective Labs Result Diagrams: 02/16/20 12:25 02/16/20 12:25 Labs: Laboratory Results - last 24 hr 02/16/20 02/16/20 02/16/20 05:35 12:25 12:25 WBC RBC Hgb 11.3 L Hct 32.9 L MCV MCH MCHC RDW Plt Count Neut % (Auto) Lymph % (Auto) [place] % (Auto) Eos % (Auto) Baso % (Auto) Neut # (Auto) Lymph # (Auto) [place] # (Auto) Eos # (Auto) Baso # (Auto) Sodium 134 L Potassium 3.8 Chloride 102 Carbon Dioxide 30 BUN 12 Creatinine 0.63 Estimated GFR > 60.0 BUN/Creatinine Ratio 19.0 Glucose 118 H Calcium 8.0 L Magnesium 1.7 Total Bilirubin 0.5 AST 44 H ALT 17 Alkaline Phosphatase 51 Total Creatine Kinase 750 H CK-MB (CK-2) 6.27 H CK-MB (CK-2) Rel Index 0.8 L Troponin I 0.016 Total Protein 5.7 L Albumin 3.2 L Globulin 2.5 Albumin/Globulin Ratio 1.3 TSH 0.91 02/16/20 12:25 WBC 14.0 H RBC 3.36 L Hgb 10.6 L Hct 31.1 L MCV 92.5 MCH 31.5 MCHC 34.0 RDW 13.0 Plt Count 208 Neut % (Auto) 80.7 H Lymph % (Auto) 8.1 L [place] % (Auto) 10.7 Eos % (Auto) 0.1 L Baso % (Auto) 0.4 Neut # (Auto) 74699 H Lymph # (Auto) 1100 [place] # (Auto) 1500 H Eos # (Auto) 0 Baso # (Auto) 100 Sodium Potassium Chloride Carbon Dioxide BUN Creatinine Estimated GFR BUN/Creatinine Ratio Glucose Calcium Magnesium Total Bilirubin AST ALT Alkaline Phosphatase Total Creatine Kinase CK-MB (CK-2) CK-MB (CK-2) Rel Index Troponin I Total Protein Albumin Globulin Albumin/Globulin Ratio TSH Assessment & Plan Assessment & Plan narrative: Cynthia Coe is a 70-year-old female with a past medical history significant for hypertension, hyperlipidemia, hypothyroidism, depression and anxiety, chronic constipation and lumbar stenosis with radiculopathy who had elective lumbar laminectomies L2 through L5 and TLIF L4-L5 with epidural. Medicine team was consulted due to sinus tachycardia. Assessment: Lumbar stenosis with radiculopathy status post elective lumbar laminectomies L2 through L5 and TLIF L4-L5 with epidural Postoperative pain and sinus tachycardia Plan: Patient had elective lumbar laminectomies L2 through L5 and TLIF L4-L5 with epidural. Her pain seems to be inadequately controlled likely due to epidu ral wearing off and baseline opiate dependence. Continue to monitor blood pressure closely. Troponin is within normal limits at 0.016 and EKG demonstrates sinus tachycardia with nonspecific ST changes likely rate dependent and some mild baseline artifact. She denies chest pain or any cardiac sympt oms. TSH is normal and she is adequately replaced with levothyroxine. Her potassium is 3.8 and magnesium 1.7 and ordered potassium chloride 40 mEq x1 and magnesium chloride 64 mEq x1. Patient received IV hydromorphone for breakthrough pain with improvement in pain control and heart rate now low 100s. Continue oxycodone 10 mg every 3 hours and hydromorphone 0.5 mg every 2 hours as needed for severe breakthrough pain. Continue to monitor respiratory rate and blood pressure closely with narcotic administration. Continue IV fluids with LR at 125 x 1 bag then discontinue. Continue to encourage PO intake of fluids. Patient has elevated WBC at 14.0 and procalcitonin 0.30 with low-grade fever 99.8? F with history of recurrent UTIs and recent Gan catheter removal. Patient currently denies symptoms. Ordered urinalysis with microscopic analysis, pending. Sinus tachycardia possibly pain mediated versus infection such as UTI or postoperative pneumonia. Thank you for this most interesting consult. Medicine team will continue to follow along with you.
--- NOTE | 2020-02-16 14:55 | PT.IPTN ---
Current Diagnoses Other forms of scoliosis, thoracolumbar region (02/16/20) Spondylolisthesis, lumbar region (02/16/20) Spinal stenosis, lumbar region with neurogenic claudication (02/16/20) Surgery Performed Operation Date: 02/15/20 07:45 Actual Procedures p L2-5 laminectomies w/ L45 instrumented fusion w/ bone graft - Mateo Torres MD Physical Therapy Treatment Note M2 PT-IP Current Condition Start: 02/15/20 14:09 Freq: NEEDED Status: Active Protocol: Document 02/15/20 15:35 DE (Rec: 02/15/20 16:02 DE [id number]) Physical Therapy Current Condition Current Condition Evaluation Date 02/15/20 Treatment Diagnosis L2-5 laminectomies, L4-5 TLIF; Difficulty in walking. Onset Date 02/15/20 Precautions Lumbar Precautions Log Roll,No Twisting,Limit Bending,Lifting Restriction of 10 lbs,Gait Belt above Incisional Area M3 PT-IP Subjective Start: 02/15/20 14:09 Freq: NEEDED Status: Active Protocol: Document 02/16/20 14:46 (Rec: 02/16/20 14:55 [id number]) Subjective Physical Therapy Visit Type Type Treatment Note Visit Start Time 14:12 Visit Stop Time 14:32 Total Visit Minutes 20 Number of FINANCIAL COACH Visits 0 Physical Therapy Visit Comments Patient Comments I want to use the bathroom Therapy Pain Assessment Pain When Pain Assessed During Mobility Location back Intensity 3 Scale Used Ludwig-Nix (Faces) Description Aching Pain Behaviors Facial Grimacing,Wincing Pain Management Techniques Timing of Activity with Medications M4 PT-IP Mobility and Gait Start: 02/15/20 14:09 Freq: NEEDED Status: Active Protocol: Document 02/16/20 14:46 (Rec: 02/16/20 14:55 [id number]) PT-Bed Mobility Assessment Sit to Supine Sit to Supine Contact Guard Assistance,1 Person Assistance,Bedrails Scooting Scooting to Edge of Bed Contact Guard Assistance Scooting Up and Down in Bed Contact Guard Assistance PT-Transfer Assessment Sit to and From Stand Sit to and from Stand Contact Guard Assistance,Use of Upper Extremities Equipment Transfer Assistive Device Gait Belt,Front Wheeled Walker Orthotic/Prosthetic Devices or Brace: No Transfers Transfer Destination Bed Transfer Technique Amb with FWW Transfer Ability Level of Assist Contact Guard Assistance,Use of Upper Extremities Comments Mobility Comments Pt was sitting at Lside EOB upon PT arriva requesting to use bathroom. Pt stood up slowly by pushing off from bed . She then slowly walked over to bathroom and safely transferred herself with stand step pivot with FWW safely. She completed self care and walked over to sink counter to wash hands. Pt needed cues to remind no bending and she was able to self correct immediately. Pt then proceeded to walk to hallway with CGA. Pt made it to [facility] and returned to room. She overall completed 60ft x 2 with step over gait pattern. She does have a lateral trunk lean but she does recall all 3 precautions. Pt then requested to return to bed. She was able to transfer herself to EOB with proper descend with use of EOB . She then completed sit to sidelying followed by log roll to center with CGA. Pt rested comfortably in bed with bed alarm activated. BP at 108/51 HR 124 but asymptomatic. call light placed within reach. Pt reported pain at 3.5/10 Gait Assessment Gait Gait Assistance Required: Contact Guard Assist Distance (Feet) 120 Able to Maintain Weight Bearing Status Yes During Gait Assistive Devices Assistive Device Gait Belt,Front Wheeled Walker Orthotic/Prosthetic Devices or Brace: No Gait Deviations General Gait Pattern Antalgic,Decreased Stride Length,Decreased Feet Clearance Factors Limiting Gait Function Factors Limiting Gait Function Decreased Activity Tolerance, Decreased Strength,Limited Range of Motion,Pain,Poor Balance,Poor Safety Awareness Comments Gait Comments See mobility comments. Stair Climbing Assessment Comments Stair Climbing Comments Not assessed. PT-Balance Assessment Sitting Balance and Reactions Static Sitting Balance Ability Normal Dynamic Sitting Balance Ability Normal Standing Balance and Reactions Static Standing Balance Ability Good Dynamic Standing Balance Ability Good M5 PT-IP Objective Assessments Start: 02/15/20 14:09 Freq: NEEDED Status: Active Protocol: Document 02/15/20 15:35 DE (Rec: 02/15/20 16:02 DE [id number]) Orientation Orientation/Cognition Level of Alertness Lethargic Orientation Name,Age,Birthday,Month,Date, Year,Day of Week,Place, Situation Language Function Ability No Deficits Noted Safety Awareness Decreased Safety Awareness Memory Description No Deficits Noted Comments Pt demonstrated drowsiness. Gross Range of Motion Lower Extremity ROM Assessment Bilaterally Impaired Strength Lower Extremity Strength Assessment Bilaterally Impaired Coordination Assessment Gross Coordination Gross Coordination WNL Sensation Assessment Sensation Gross Sensation WNL Light Touch Intact Muscle Tone Muscle Tone WNL Yes M6 PT-IP Treatment Start: 02/15/20 14:09 Freq: NEEDED Status: Active Protocol: Document 02/15/20 15:35 DE (Rec: 02/15/20 16:02 DE [id number]) Physical Therapy Treatment Education Education Provided Precautions,Post-Op Packet, Safety Other Treatments Other Treatment Performed Provided education on pracautions, safety, and role of PT. M7 PT-IP Assessment and Plan Start: 02/15/20 14:09 Freq: NEEDED Status: Active Protocol: Document 02/16/20 14:46 HH (Rec: 02/16/20 14:55 HH [id number]) PT Summary Assessment and Plan Potential Rehabilitation Potential Good Status of Condition at Evaluation Evolving Summary Impairments Pain,ROM,Strength,Balance,Bed Mobility,Transfers,Gait, Activity Tolerance Progress Towards Goals Slow Progress due to Medical Issues,Slow Progress due to Activity Tolerance,Slow Progress - Other Assessment Summary pt shows progress this time with improved amb distance and less assistance required for bed mobility and mobility. She was not mindful with her precautions while doing self care but immediately corrected herself with cues. Although pt cont to have tachycardia at rest 120s, she was asymptomatic. Expect to complete stair climb tomorrow morning then she should be safe to d/c home. Goals Bed Mobility Goal Standby Assistance Transfer Goal Standby Assistance,Front Wheeled Walker Gait Goal Standby Assistance,Front Wheel Walker Gait Distance 200 Other Goals Pt will perform 2 steps with R railing going up SBA. Days to Meet Goals 5 Frequency of Treatment Frequency Of Treatment Twice a Day Treatment Plan Physical Therapy Treatment Plan Bed Mobility Training,Transfer Training,Gait Training, Therapeutic Exercise,Balance Retraining,Post Op Education, Discharge Planning,Hot or Cold Pack,Neuromuscular Re-ed Recommendations To Nursing Amount of Assist Needed 1 Person Assist Discharge Recommendations PT Discharge Recommendations Home with Assistance Transportation Needs at Discharge Private Vehicle
[2020-02-16] MEDS: polyethylene glycoL 3350 17 GM POWD.PACK PO (15:58)
[2020-02-16] MEDS: hydrOXYzine pamoate 25 MG CAPSULE PO ×2 (17:18→22:54)
--- NOTE | 2020-02-16 19:07 | PC.NURSE ---
Addendum entered by Tonie Villatoro R.N. 02/16/20 23:17: Pt reports good pain relief/management with tylenol. Comfortable on right side in bed. Afebrile. UA collected and sent to lab by SASH STICKER. Pt returned to bed as per SASH STICKER following toileting. Ice to back when in bed. Addendum entered by Tonie Villatoro R.N. 02/16/20 19:35: Dr. Robertson aware of pt's elevated temp 101.0. Orders received for UA. Original Note: Pt is lying in bed @ beginning of shift. Medicated for pain as per coordinatorSusannah. Uses call light appropriately for toileting. Requires reminder to avoid bending, twisting and to log roll when getting in and out of bed. Is compliant with instructions. BL calf scd's in place with rationale provided for this intervention. Ice to back. Encouraged I.S. use and pt able to use to 500-750. Standby assistance to bathroom to void and now up in recliner. Pt's skin warm to touch and temporal temp 101.0. I.S. use reinforced, water available @ bedside and Dr. Mejia informed via telephone.
[2020-02-16] MEDS: ACETAMINOPHEN 325 MG TABLET 975 MG PO (19:49)
[2020-02-16] MEDS: SENNOSIDES 8.6 MG TABLET 17.2 MG PO (19:55)
[2020-02-16 20:43] LABS: COVID19 -Nasal RAPID Negative (Negative)
[2020-02-16] MEDS: SODIUM CHLORIDE 0.9% FLUSH 10 ML IV (21:55)
[2020-02-16 23:19] LABS: Bacteria Urine None Seen; WBC Urine None Seen (0-5/HPF)
[2020-02-16 23:20] LABS: Appearance Urine UA CLEAR; Bilirubin Urine UA NEGATIVE (NEGATIVE); Color Urine UA YELLOW; Glucose Urine UA NEGATIVE (Negative); Ketones Urine UA NEGATIVE (NEGATIVE); Leukocyte Esterase Urine UA NEGATIVE (NEGATIVE); Nitrite Urine UA NEGATIVE (Negative); Occult Blood Urine UA TRACE-INTACT (Negative); Protein Urine UA NEGATIVE (Negative); Urobilinogen Urine UA 0.2 E.U./dL (0.2)
[2020-02-16 23:35] LABS: Culture Indicated Urine Cult Not Indicated; RBC Urine 0-1/HPF (0-5/HPF)
[2020-02-17] MEDS: OXYCODONE IR 5 MG TABLET 10 MG PO ×2 (02:02→07:57)
[2020-02-17] MEDS: hydrOXYzine pamoate 25 MG CAPSULE PO (03:07)
[2020-02-17] MEDS: ACETAMINOPHEN 325 MG TABLET 975 MG PO ×2 (03:07→12:08)
[2020-02-17 04:40] VITALS: BP 109/37; PULSE 85; RESP 16; TEMP 36.7; O2SAT 93
[2020-02-17] MEDS: LEVOTHYROXINE 137 MCG TABLET PO (05:01)
[2020-02-17 05:21] LABS: Add Manual Diff / Slide Review NO; Basophils Absolute Auto 100 /uL (0-100); Basophils Percent Auto 0.6 % (0-2); Eosinophils Absolute Auto 100 /uL (0-450); Eosinophils Percent Auto 0.8 % (2-4); Hematocrit 28.9 % (36-46); Lymphocytes Absolute Auto 1300 /uL (1100-4500); Lymphocytes Percent Auto 10.4 % (25-40); Mean Corpuscular HGB Conc 34.5 % (30-36); Mean Corpuscular Hemoglobin 31.9 PG (26-34); Mean Corpuscular Volume 92.3 fL (80-100); Monocytes Absolute Auto 1400 /uL (0-900); Monocytes Percent Auto 10.4 % (3-14); Neutrophils Absolute Auto 10100 /uL (1500-7000); Neutrophils Percent Auto 77.8 % (50-75); Platelet Count 177 X10^3/uL (150-400); Red Blood Cell Count 3.13 X10^6/uL (4.0-5.2); Red Cell Distribution Width 12.9 % (11.6-14.8)
[2020-02-17 07:10] VITALS: BP 130/57; PULSE 84; RESP 16; O2SAT 95
[2020-02-17 07:15] VITALS: TEMP 36.6
[2020-02-17 07:44] LABS: BUN Creatinine Ratio 16.1 (6-22); Blood Urea Nitrogen 9 mg/dL (7-17); Calcium 8.2 mg/dL (8.4-10.2); Carbon Dioxide 31 mmol/L (22-32); Chloride 101 mmol/L (98-107); Estimated Glomerular Filt Rate > 60.0 mL/min (>60); Glucose 106 mg/dL (80-110); HEMOLYSIS < 15 (0-50); Potassium 4.1 mmol/L (3.4-5.1); Sodium 132 mmol/L (137-145)
[2020-02-17] MEDS: SIMVASTATIN 20 MG TABLET 10 MG PO (09:04)
[2020-02-17] MEDS: DOCUSATE 100 MG CAPSULE PO (09:07)
[2020-02-17] MEDS: FELODIPINE ER 2.5 MG TAB PO (09:07)
[2020-02-17] MEDS: buPROPion XL 150 MG TAB PO (09:07)
[2020-02-17] MEDS: FLUTICASONE 120 SPRAY/16 GM SPRAY.SUSP NASAL (09:11)
[2020-02-17] MEDS: polyethylene glycoL 3350 17 GM POWD.PACK PO (09:11)
[2020-02-17] MEDS: GABAPENTIN 600 MG TABLET 1200 MG PO (09:17)
--- NOTE | 2020-02-17 09:26 | P.PN_ITS ---
Subjective Subjective Date Patient Seen: 02/17/20 Time Patient Seen: 09:26 Interval history: She had a rough night. She was up 5 times to urinate all the IV fluid that we had been bolusing her with. The back pain is fairly well controlled. The legs just feel achy but Tylenol seems to help on that. She had been running a fever history afternoon at 101? but is back down to normal. She has been up and down going to the bathroom independently and feels strong. She wants to go home. Exam Vital Signs (past 8 hours): - 02/17/20 04:40 02/17/20 07:10 02/17/20 07:15 Temperature 98.0 F 97.9 F Pulse Rate 85 84 Respiratory Rate 16 16 Blood Pressure 109/37 L 130/57 L Pulse Oximetry 93 95 Oxygen Delivery Method Room Air Oxygen Flow Rate 0 Const Orientation: alert and oriented x3 Back/Spine/Pelvis Other: CDI. 5/5 motor both lower extremities. Objective Labs Result Diagrams: 02/17/20 05:10 02/17/20 05:10 Labs: Laboratory Results - last 24 hr 02/16/20 02/16/20 02/16/20 12:25 12:25 12:25 WBC 14.0 H RBC 3.36 L Hgb 10.6 L Hct 31.1 L MCV 92.5 MCH 31.5 MCHC 34.0 RDW 13.0 Plt Count 208 Neut % (Auto) 80.7 H Lymph % (Auto) 8.1 L [place] % (Auto) 10.7 Eos % (Auto) 0.1 L Baso % (Auto) 0.4 Neut # (Auto) 28348 H Lymph # (Auto) 1100 [place] # (Auto) 1500 H Eos # (Auto) 0 Baso # (Auto) 100 Sodium 134 L Potassium 3.8 Chloride 102 Carbon Dioxide 30 BUN 12 Creatinine 0.63 Estimated GFR > 60.0 BUN/Creatinine Ratio 19.0 Glucose 118 H Calcium 8.0 L Magnesium 1.7 Total Bilirubin 0.5 AST 44 H ALT 17 Alkaline Phosphatase 51 Total Creatine Kinase 750 H CK-MB (CK-2) 6.27 H CK-MB (CK-2) Rel Index 0.8 L Troponin I 0.016 Total Protein 5.7 L Albumin 3.2 L Globulin 2.5 Albumin/Globulin Ratio 1.3 Procalcitonin TSH 0.91 Urine Color Urine Appearance Urine pH Ur Specific [place] Urine Protein Urine Glucose (UA) Urine Ketones Urine Occult Blood Urine Nitrate Urine Bilirubin Urine Urobilinogen Ur Leukocyte Esterase Urine RBC Urine WBC Urine Bacteria Ur Culture Indicated? COVID-19 PCR 02/16/20 02/16/20 02/16/20 12:25 20:00 23:17 WBC RBC Hgb Hct MCV MCH MCHC RDW Plt Count Neut % (Auto) Lymph % (Auto) [place] % (Auto) Eos % (Auto) Baso % (Auto) Neut # (Auto) Lymph # (Auto) [place] # (Auto) Eos # (Auto) Baso # (Auto) Sodium Potassium Chloride Carbon Dioxide BUN Creatinine Estimated GFR BUN/Creatinine Ratio Glucose Calcium Magnesium Total Bilirubin AST ALT Alkaline Phosphatase Total Creatine Kinase CK-MB (CK-2) CK-MB (CK-2) Rel Index Troponin I Total Protein Albumin Globulin Albumin/Globulin Ratio Procalcitonin 0.30 TSH Urine Color Yellow Urine Appearance Clear Urine pH 7.0 Ur Specific [place] 1.010 Urine Protein Negative Urine Glucose (UA) Negative Urine Ketones Negative Urine Occult Blood Trace-intact Urine Nitrate Negative Urine Bilirubin Negative Urine Urobilinogen 0.2 Ur Leukocyte Esterase Negative Urine RBC 0-1/hpf Urine WBC None seen Urine Bacteria None seen Ur Culture Indicated? Cult not indicated COVID-19 PCR Negative 02/17/20 02/17/20 02/17/20 05:10 05:10 05:10 WBC 13.0 H RBC 3.13 L Hgb 10.0 L Hct 28.9 L MCV 92.3 MCH 31.9 MCHC 34.5 RDW 12.9 Plt Count 177 Neut % (Auto) 77.8 H Lymph % (Auto) 10.4 L [place] % (Auto) 10.4 Eos % (Auto) 0.8 L Baso % (Auto) 0.6 Neut # (Auto) 41453 H Lymph # (Auto) 1300 [place] # (Auto) 1400 H Eos # (Auto) 100 Baso # (Auto) 100 Sodium 132 L Potassium 4.1 Chloride 101 Carbon Dioxide 31 BUN 9 Creatinine 0.56 Estimated GFR > 60.0 BUN/Creatinine Ratio 16.1 Glucose 106 Calcium 8.2 L Magnesium 2.0 Total Bilirubin AST ALT Alkaline Phosphatase Total Creatine Kinase CK-MB (CK-2) CK-MB (CK-2) Rel Index Troponin I Total Protein Albumin Globulin Albumin/Globulin Ratio Procalcitonin 0.70 H TSH Urine Color Urine Appearance Urine pH Ur Specific [place] Urine Protein Urine Glucose (UA) Urine Ketones Urine Occult Blood Urine Nitrate Urine Bilirubin Urine Urobilinogen Ur Leukocyte Esterase Urine RBC Urine WBC Urine Bacteria Ur Culture Indicated? COVID-19 PCR [facility] Medical History (Updated 02/16/20 @ 13:46 by Diane Robertson DO) Arthritis Compression fracture Depression with anxiety Easy bruisability History of Mohs micrographic surgery for skin cancer HLD (hyperlipidemia) HTN (hypertension) Hypothyroid Leg fracture, right Osteoarthritis PAC (premature atrial contraction) Sciatica Skin cancer TMJ (temporomandibular joint syndrome) Surgical History History of arthroplasty of left knee (2018) History of hysterectomy (~1999) History of tonsillectomy and adenoidectomy Hx of bilateral cataract extraction (~2014) Hx of fusion of cervical spine (~1996) Family History Mother Multiple sclerosis Father No problems noted. Social History household members: spouse Smoking Status: Never smoker alcohol intake: current Assessment & Plan Post-op Postoperative Procedures: Procedures Operation Date: 02/15/20 07:45 Actual Procedures Side Surgeon p L2-5 laminectomies w/ L45 instrumented fusion w/ bone graft Mateo Torres MD I am going to change around her medication to increase the Tylenol. I am also going to give her dose of IV steroids. I am fine with her going home as she is able to mobilize on her own as well as her cousin will be with her multimedia teacher. Quality VTE Deep Vein Thrombosis/Pulmonary Embolism Present on Admission: No
--- NOTE | 2020-02-17 09:31 | P.DS_ITS ---
History of Present Illness History of Present Illness Date Patient Seen: 02/17/20 Time Patient Seen: 09:31 Chief complaint: OPB Narrative: 70-year-old female with pain in the back and radiation down the legs. She has been through physical therapy, narcotic pain medication, and epidural steroid injections without relief. Discharge Providers Provider Date of admission: 02/16/20 06:32 Discharge Date: 02/17/20 Primary care physician: Huang Martinez MD Consults: 02/15/20 13:50 Consult to Occupational Therapy Evaluate & Treat Comment: Physician Instructions: Evaluate and treat Consult to Physical Therapy Evaluate & Treat Comment: Physician Instructions: Evaluate and Treat 02/16/20 11:42 Consult to Discharge Planning Routine Comment: Pt needs a FWW at d/c 02/16/20 13:11 Consult to Internal Medicine Routine Comment: Consulting Provider: Diane Robertson Reason for consultation: TACHYCARDIA Has provider been notified: Yes Discharge provider: Mateo Torres MD Summary Hospital Course Discharge Diagnosis: Lumbar stenosis with radiculopathy Lumbar spondylolisthesis Hospital Course: Patient brought to the operating room on 02/15/2020 where she underwent an L2 through 5 laminectomy with an L4-5 TLIF. Postoperative day 1 she was somewhat hypotensive and tachycardic. EKG showed sinus tachycardia but medicine was consulted as there was some slight ST changes. It was felt this was just artifact and her troponin was normal. She was running a fever of 101. This did resolve. A urinalysis was checked which was normal. By postoperative day 2. She was up and walking around independently with just a walker. Her pain was under control. She wanted to go home. Status at Discharge Cognitive/behavioral status at discharge: oriented Functional status at discharge: uses cane/walker Overall status at discharge: patient is progressing back to baseline Exam Vital Signs (past 8 hours): - 02/17/20 04:40 02/17/20 07:10 02/17/20 07:15 Temperature 98.0 F 97.9 F Pulse Rate 85 84 Respiratory Rate 16 16 Blood Pressure 109/37 L 130/57 L Pulse Oximetry 93 95 Oxygen Delivery Method Room Air Oxygen Flow Rate 0 Const Orientation: alert and oriented x3 Back/Spine/Pelvis Other: CDI. 5/5 motor both lower extremities Objective Labs Result Diagrams: 02/17/20 05:10 02/17/20 05:10 Labs: Laboratory Results - last 24 hr 02/16/20 02/16/20 02/16/20 12:25 12:25 12:25 WBC 14.0 H RBC 3.36 L Hgb 10.6 L Hct 31.1 L MCV 92.5 MCH 31.5 MCHC 34.0 RDW 13.0 Plt Count 208 Neut % (Auto) 80.7 H Lymph % (Auto) 8.1 L [place] % (Auto) 10.7 Eos % (Auto) 0.1 L Baso % (Auto) 0.4 Neut # (Auto) 91315 H Lymph # (Auto) 1100 [place] # (Auto) 1500 H Eos # (Auto) 0 Baso # (Auto) 100 Sodium 134 L Potassium 3.8 Chloride 102 Carbon Dioxide 30 BUN 12 Creatinine 0.63 Estimated GFR > 60.0 BUN/Creatinine Ratio 19.0 Glucose 118 H Calcium 8.0 L Magnesium 1.7 Total Bilirubin 0.5 AST 44 H ALT 17 Alkaline Phosphatase 51 Total Creatine Kinase 750 H CK-MB (CK-2) 6.27 H CK-MB (CK-2) Rel Index 0.8 L Troponin I 0.016 Total Protein 5.7 L Albumin 3.2 L Globulin 2.5 Albumin/Globulin Ratio 1.3 Procalcitonin TSH 0.91 Urine Color Urine Appearance Urine pH Ur Specific [place] Urine Protein Urine Glucose (UA) Urine Ketones Urine Occult Blood Urine Nitrate Urine Bilirubin Urine Urobilinogen Ur Leukocyte Esterase Urine RBC Urine WBC Urine Bacteria Ur Culture Indicated? COVID-19 PCR 02/16/20 02/16/20 02/16/20 12:25 20:00 23:17 WBC RBC Hgb Hct MCV MCH MCHC RDW Plt Count Neut % (Auto) Lymph % (Auto) [place] % (Auto) Eos % (Auto) Baso % (Auto) Neut # (Auto) Lymph # (Auto) [place] # (Auto) Eos # (Auto) Baso # (Auto) Sodium Potassium Chloride Carbon Dioxide BUN Creatinine Estimated GFR BUN/Creatinine Ratio Glucose Calcium Magnesium Total Bilirubin AST ALT Alkaline Phosphatase Total Creatine Kinase CK-MB (CK-2) CK-MB (CK-2) Rel Index Troponin I Total Protein Albumin Globulin Albumin/Globulin Ratio Procalcitonin 0.30 TSH Urine Color Yellow Urine Appearance Clear Urine pH 7.0 Ur Specific [place] 1.010 Urine Protein Negative Urine Glucose (UA) Negative Urine Ketones Negative Urine Occult Blood Trace-intact Urine Nitrate Negative Urine Bilirubin Negative Urine Urobilinogen 0.2 Ur Leukocyte Esterase Negative Urine RBC 0-1/hpf Urine WBC None seen Urine Bacteria None seen Ur Culture Indicated? Cult not indicated COVID-19 PCR Negative 02/17/20 02/17/20 02/17/20 05:10 05:10 05:10 WBC 13.0 H RBC 3.13 L Hgb 10.0 L Hct 28.9 L MCV 92.3 MCH 31.9 MCHC 34.5 RDW 12.9 Plt Count 177 Neut % (Auto) 77.8 H Lymph % (Auto) 10.4 L [place] % (Auto) 10.4 Eos % (Auto) 0.8 L Baso % (Auto) 0.6 Neut # (Auto) 09636 H Lymph # (Auto) 1300 [place] # (Auto) 1400 H Eos # (Auto) 100 Baso # (Auto) 100 Sodium 132 L Potassium 4.1 Chloride 101 Carbon Dioxide 31 BUN 9 Creatinine 0.56 Estimated GFR > 60.0 BUN/Creatinine Ratio 16.1 Glucose 106 Calcium 8.2 L Magnesium 2.0 Total Bilirubin AST ALT Alkaline Phosphatase Total Creatine Kinase CK-MB (CK-2) CK-MB (CK-2) Rel Index Troponin I Total Protein Albumin Globulin Albumin/Globulin Ratio Procalcitonin 0.70 H TSH Urine Color Urine Appearance Urine pH Ur Specific [place] Urine Protein Urine Glucose (UA) Urine Ketones Urine Occult Blood Urine Nitrate Urine Bilirubin Urine Urobilinogen Ur Leukocyte Esterase Urine RBC Urine WBC Urine Bacteria Ur Culture Indicated? COVID-19 PCR PFSH Medical History (Updated 02/16/20 @ 13:46 by Diane Robertson DO) Arthritis Compression fracture Depression with anxiety Easy bruisability History of Mohs micrographic surgery for skin cancer HLD (hyperlipidemia) HTN (hypertension) Hypothyroid Leg fracture, right Osteoarthritis PAC (premature atrial contraction) Sciatica Skin cancer TMJ (temporomandibular joint syndrome) Surgical History History of arthroplasty of left knee (2019) History of hysterectomy (~1999) History of tonsillectomy and adenoidectomy Hx of bilateral cataract extraction (~2014) Hx of fusion of cervical spine (~1996) Family History (Reviewed 02/16/20 @ 13:45 by ROLAND Carrillo Mother Multiple sclerosis Father No problems noted. Social History household members: spouse Smoking Status: Never smoker alcohol intake: current Discharge Assessment & Plan Assessment and Plan Assessment: Spinal stenosis, now status post laminectomy and fusion Plan of Treatment: Discharge home. Follow-up in 1 week Discharge Plan Discharge Plan Patient Disposition: Home Provider Discharge Comment: Follow-up 1.5 weeks Discharge orders & Medications Prescriptions: New docusate sodium [DOK] 100 mg Capsule 100 mg PO BID PRN (Reason: constipation) Qty: 30 RF: 0 hydroxyzine pamoate 25 mg Capsule 25 mg PO Q4HR PRN (Reason: spasms) Qty: 20 RF: 0 oxycodone 5 mg Tablet See Rx Instructions .ROUTE .COMPLEX PRN (Reason: Pain, Moderate (4-6)) Qty: 35 RF: 0 Continued gabapentin 600 mg Tablet 1,200 mg PO BID RF: 0 felodipine 2.5 mg Tablet Extended Release 24 Hr 2.5 mg PO DAILY RF: 0 simvastatin 10 mg Tablet 10 mg PO DAILY RF: 0 oxycodone-acetaminophen [Percocet] 5-325 mg Tablet 1 tab PO TID RF: 0 lidocaine 5 % Adhesive Patch,Medicated 1.5 patch TOPICAL DAILY RF: 0 fluticasone propionate 50 mcg/actuation [place],Suspension 2 spray INTRANASAL DAILY RF: 0 vitamin A-vitamin C-vit E-min Tablet 1 tab PO DAILY RF: 0 bupropion HCl 150 mg Tablet Extended Release 24 Hr 150 mg PO QAM RF: 0 levothyroxine 137 mcg Capsule 137 mcg PO DAILY RF: 0 Follow up/Referrals: Huang Martinez MD [Primary Care Provider] - Discharge Health Status Multidrug resistant organism: No MDRO Diet/Activity/Treatments Diet: Diet as Tolerated Activity: Limited bending, twisting, 10 lb maximum lifting Skin/Wound/Dressing Care Report to your healthcare provider any signs of infection, such as:: chills, fever, night sweats, increased pain, unusual drainage and unusual redness Dressing: May shower over dressing for the 1st 5 days. On Wednesday, you may remove the dressing and shower over the incision. Please replace this with a clean dry dressing when done Visit Report/Discharge Packet Instructions: DI for Transforaminal Lumbar Interbody Fusion Stand Alone Forms: Surgery Discharge Discharge Data Primary Care Provider: Michelle,Huang Quality VTE Deep Vein Thrombosis/Pulmonary Embolism Present on Admission: No
[2020-02-17] MEDS: DEXAMETHASONE 10 MG/ML VIAL IV (09:40)
--- NOTE | 2020-02-17 10:52 | PT.IPTN ---
Current Diagnoses Other forms of scoliosis, thoracolumbar region (02/16/20) Spondylolisthesis, lumbar region (02/16/20) Spinal stenosis, lumbar region with neurogenic claudication (02/16/20) Surgery Performed Operation Date: 02/15/20 07:45 Actual Procedures p L2-5 laminectomies w/ L45 instrumented fusion w/ bone graft - Mateo Torres MD Physical Therapy Treatment Note M2 PT-IP Current Condition Start: 02/15/20 14:09 Freq: NEEDED Status: Active Protocol: Document 02/15/20 15:35 DE (Rec: 02/15/20 16:02 DE [id number]) Physical Therapy Current Condition Current Condition Evaluation Date 02/15/20 Treatment Diagnosis L2-5 laminectomies, L4-5 TLIF; Difficulty in walking. Onset Date 02/15/20 Precautions Lumbar Precautions Log Roll,No Twisting,Limit Bending,Lifting Restriction of 10 lbs,Gait Belt above Incisional Area M3 PT-IP Subjective Start: 02/15/20 14:09 Freq: NEEDED Status: Active Protocol: Document 02/17/20 10:36 KS (Rec: 02/17/20 12:21 KS [id number]) Subjective Physical Therapy Visit Type Type Treatment Note Visit Start Time 10:36 Visit Stop Time 10:52 Total Visit Minutes 16 Number of AWNING HANGER HELPER Visits 1 Physical Therapy Visit Comments Patient Comments Pt agreeable to work w/ therapy and pts cousin present . Therapy Pain Assessment Pain When Pain Assessed At Rest Pain Present Pain Present Pain Reported Location back Intensity 5 Scale Used Numeric (0 - 10) Pain Behaviors Facial Grimacing,Wincing Pain Management Techniques Timing of Activity with Medications M4 PT-IP Mobility and Gait Start: 02/15/20 14:09 Freq: NEEDED Status: Active Protocol: Document 02/17/20 10:36 KS (Rec: 02/17/20 12:21 KS [id number]) PT-Bed Mobility Assessment Rolling Type of Rolling Roll to Right Level of Assist Standby Assistance Scooting Scooting to Edge of Bed Standby Assistance PT-Transfer Assessment Sit to and From Stand Sit to and from Stand Standby Assistance,1 Person Assistance,Use of Upper Extremities Equipment Transfer Assistive Device Gait Belt,Front Wheeled Walker Orthotic/Prosthetic Devices or Brace: No Transfers Transfer Destination Bed Transfer Technique Amb with FWW Transfer Ability Level of Assist Contact Guard Assistance,Use of Upper Extremities Comments Mobility Comments Pt sitting on bench upon arrival from PT w/ cousin in room. Demonstrated gait belt application to pts cousin. Pt SBA for sit<>stand w/ FWW. She then ambulated ~100 ft to stairs w/ FWW and CGA provided by pts cousin and ascended/ descended 3 steps w/ R rail ascending step to pattern w/ CGA by pts cousin. Pt then ambulated additional 100 ft back to room w/ FWW SBA to CGA where she performed bed mobility/logroll SBA. Pt left in bed w/ all needs in reach. Gait Assessment Gait Gait Assistance Required: Standby Assistance,Contact Guard Assist,1 Person Assist Distance (Feet) 200 Able to Maintain Weight Bearing Status Yes During Gait Assistive Devices Assistive Device Gait Belt,Front Wheeled Walker Orthotic/Prosthetic Devices or Brace: No Gait Deviations General Gait Pattern Antalgic,Decreased Stride Length,Decreased Feet Clearance,Flexed Trunk Factors Limiting Gait Function Factors Limiting Gait Function Decreased Activity Tolerance, Decreased Strength,Limited Range of Motion,Pain,Poor Balance,Poor Safety Awareness Comments Gait Comments See mobility comments. Stair Climbing Assessment Evaluation Level of Assist On Stairs Contact Guard Assistance,1 Person Assistance Devices Stair Climbing Assistive Devices Straight Cane,Right Railing Technique/Endurance Stair Climbing Direction Ascend and Descend Stair Climbing Technique Step to Step Number of Steps Climbed 3 Stair Climbing Set # Repetitions (reps) 1 Comments Stair Climbing Comments Pt ascended/descended 3 steps w/ R rail ascending and SPC in L hand w/ step to pattern and CGA and cues safely provided by pts cousin. Pt and cousin state they feel safe to perform stairs at home. PT-Balance Assessment Sitting Balance and Reactions Static Sitting Balance Ability Normal Dynamic Sitting Balance Ability Normal Standing Balance and Reactions Static Standing Balance Ability Good Dynamic Standing Balance Ability Good M5 PT-IP Objective Assessments Start: 02/15/20 14:09 Freq: NEEDED Status: Active Protocol: Document 02/15/20 15:35 DE (Rec: 02/15/20 16:02 DE [id number]) Orientation Orientation/Cognition Level of Alertness Lethargic Orientation Name,Age,Birthday,Month,Date, Year,Day of Week,Place, Situation Language Function Ability No Deficits Noted Safety Awareness Decreased Safety Awareness Memory Description No Deficits Noted Comments Pt demonstrated drowsiness. Gross Range of Motion Lower Extremity ROM Assessment Bilaterally Impaired Strength Lower Extremity Strength Assessment Bilaterally Impaired Coordination Assessment Gross Coordination Gross Coordination WNL Sensation Assessment Sensation Gross Sensation WNL Light Touch Intact Muscle Tone Muscle Tone WNL Yes M6 PT-IP Treatment Start: 02/15/20 14:09 Freq: NEEDED Status: Active Protocol: Document 02/17/20 10:36 KS (Rec: 02/17/20 12:21 KS [id number]) Physical Therapy Treatment Other Treatments Other Treatment Performed Dispensed FWW for pts home use . Caregiver training M7 PT-IP Assessment and Plan Start: 02/15/20 14:09 Freq: NEEDED Status: Active Protocol: Document 02/17/20 10:36 KS (Rec: 02/17/20 12:21 KS [id number]) PT Summary Assessment and Plan Potential Rehabilitation Potential Good Status of Condition at Evaluation Evolving Summary Impairments Pain,ROM,Strength,Balance,Bed Mobility,Transfers,Gait, Activity Tolerance Progress Towards Goals Slow Progress due to Medical Issues,Slow Progress due to Activity Tolerance,Slow Progress - Other Assessment Summary Pt SBA to CGA for bed mobility , logroll, transfers, ambulation and CGA for stairs. Pt tolerated ~200 ft ambulation w/ FWW and ascended /descended 3 steps w/ R rail ascending and SPC in L hand and CGA and cues safely provided by pts cousin. Completed caregiver training w / pts cousin who was able to provide pt w/ appropriate cues and assist. Pt states she feels ready to return home. Goals Bed Mobility Goal Standby Assistance Transfer Goal Standby Assistance,Front Wheeled Walker Gait Goal Standby Assistance,Front Wheel Walker Gait Distance 200 Other Goals Pt will perform 2 steps with R railing going up SBA. Days to Meet Goals 5 Frequency of Treatment Frequency Of Treatment Twice a Day Treatment Plan Physical Therapy Treatment Plan Bed Mobility Training,Transfer Training,Gait Training, Therapeutic Exercise,Balance Retraining,Post Op Education, Discharge Planning,Hot or Cold Pack,Neuromuscular Re-ed Recommendations To Nursing Amount of Assist Needed 1 Person Assist Discharge Recommendations PT Discharge Recommendations Home with Assistance Transportation Needs at Discharge Private Vehicle
--- NOTE | 2020-02-17 11:13 | CM.DPC ---
DCP: continued: DC order to home setting noted. Met with pt and her cousin Li at their request. Li confirms she has been part of the caregiver training today and that pt seemed to do very well with PT. (PT Cele confirmed same). Pt is eager for any pain medication that she may need before she leaves the hospital. Albert/FRANCI is aware. Li has several questions re the overall d/c medications and have advised them to discuss this with Albert as he is finalizing Dr. Martin d/c instructions and will be going over these in detail. Checked in on walker order given to PT dept yesterday. PT Rosalia confirms she has the order and is issuing this to pt now.
--- NOTE | 2020-02-17 12:03 | OT.IP.TRT ---
Current Diagnoses Other forms of scoliosis, thoracolumbar region (02/16/20) Spondylolisthesis, lumbar region (02/16/20) Spinal stenosis, lumbar region with neurogenic claudication (02/16/20) Surgery Performed Operation Date: 02/15/20 07:45 Actual Procedures p L2-5 laminectomies w/ L45 instrumented fusion w/ bone graft - Mateo Torres MD Occupational Therapy Treatment Note M2 OT-IP Current Condition Start: 02/16/20 12:55 Freq: Status: Active Protocol: Document 02/16/20 12:55 CGR (Rec: 02/16/20 13:15 CGR [id number]) Occupational Therapy Current Condition Current Condition Evaluation Date 02/16/20 Treatment Diagnosis L2-5 Lami Diagnosis Onset Date 02/15/20 Post Operative Precautions Lumbar Precautions Log Roll,No Twisting,Limit Bending,Lifting Restriction of 10 lbs,Gait Belt above Incisional Area M3 OT- IP Subjective and Pain Start: 02/16/20 12:55 Freq: Status: Active Protocol: Document 02/17/20 13:50 CGR (Rec: 02/17/20 13:56 CGR [email or web address]) OT- Subjective Occupational Therapy Visit Type Type Progress Note Visit Start Time 11:16 Visit Stop Time 12:03 Total Visit Minutes 47 Notes Pt's cousin present throguhout session. OT Pain Assessment Pain When Pain Assessed At Rest Pain Present Pain Present Pain Reported Location back Intensity 4 Scale Used Numeric (0 - 10) Management Techniques Distraction,Modification of Treatment,Re-positioning, Timing of Activity with Medications M4 OT- IP ADL's Start: 02/16/20 12:55 Freq: Status: Active Protocol: Document 02/17/20 13:50 CGR (Rec: 02/17/20 13:56 CGR [email or web address]) OT [id number] General Evaluation Self-Feeding Ability Independent Comments OT Self-Feeding Comments Lunch at end of session. OT ADL-Grooming General Evaluation Grooming Ability Independent Areas Needing Assistance Retrieving/Set-up of Grooming Items,Combing/Brushing Hair Comments OT Grooming Comments Brushed hair seated after shower. OT ADL-Oral Care Comments Oral Care Comments Not performed in this session. OT ADL-Dressing General Eval Upper Body Dressing Ability Independent Lower Body Dressing Ability Standby Assistance Areas Needing Assistance Retrieving/Set-up of Clothing, Pull-Over Shirt,Underpants/ Brief,Pants/Shorts Assistive Devices Dressing Assistive Devices Medical Scribe Comments OT Dressing Comments Pt educated on use of sonar technician and provided with sonar technician for home use. Pt declines sock aid training stating that someone will assist till she is able to do it. OT ADL-Toileting General Evaluation Toileting Ability Standby Assistance Devices Toileting Assistive Devices Grab Bars OT ADL-Bathing Bathing Type Bathing Type Shower General Evaluation Bathing Ability Standby Assistance Areas Needing Assistance Retrieving/Setting Up Items Devices Bathing Equipment Hand Held Shower Sprayer, Shower Chair with Arms,Grab Bars Comments OT Bathing Comments Pt showered and washed hair seated on BSC in shower without any physical assist. Educated pt on safety throghout session. M5 OT- IP IADL's Start: 02/16/20 12:55 Freq: Status: Active Protocol: Document 02/16/20 12:55 CGR (Rec: 02/16/20 13:15 CGR [email or web address]) OT-Instrumental Activities of Daily Living Deficits IADL Deficits Identified Deficits Home Safety Awareness Awareness of Need for Assistance at Home Decreased Awareness Ability to Problem Solve Emergency Able to Problem Solve Situations M6 OT- IP Functional Cognition Start: 02/16/20 12:55 Freq: Status: Active Protocol: Document 02/16/20 12:55 CGR (Rec: 02/16/20 13:15 CGR [email or web address]) Cognitive Factors Limiting Selfcare Function Cognitive Ability Level of Alertness Alert Patient Orientation Name,Age,Birthday,Month,Date, Year,Day of Week,Place, Situation Attention Span Ability Capable of Focused Attention, Capable of Sustained Attention Ability to Follow Commands Able to Follow One Step Commands with Increased Time, Able to Follow One Step Commands with Repetition Cognitive Comments Cognitive Assessment Comments Pt displays inconsistencies with her memory stating Im confused, you said I shouldn't do a log roll although this creative services writer had been stating the need to perform a logroll for bed mobility. Pt is unlikely to be agreeable to a cognitive assessment. OT- Vision and Hearing OT- Hearing Assessment OT- Hearing Assessment WFL OT- Vision Assessment Visual Acuity WFL Visual Attentiveness WFL Occular Pursuits WFL Visual Convergence WFL M7 OT- IP Mobility and Balance Start: 02/16/20 12:55 Freq: Status: Active Protocol: Document 02/17/20 13:50 CGR (Rec: 02/17/20 13:56 CGR [email or web address]) OT- Bed Mobility Assessment Rolling Type of Rolling Log Rolling,Roll to Left Level of Assistance Standby Assistance Supine to Sit Supine to Sit Assist Standby Assistance Sit to Supine Sit to Supine Assist Standby Assistance Scooting Scooting to Edge of Bed Standby Assistance OT-Transfer Assessment Sit to and From Stand Sit to and from Stand Standby Assistance Transfers Transfer Ability Standby Assistance Technique Transfer Destination Bed,Chair,Shower Stall,Toilet Transfer Technique Stand Step Pivot Devices Transfer Assistive Devices Gait Belt,Front Wheeled Walker Comments Mobility Comments Mobility around the room for ADLs. OT- Balance Assessment Sitting Balance and Reactions Static Sitting Balance Ability Good Dynamic Sitting Balance Ability Fair M8 OT- IP Objective Assessments Start: 02/16/20 12:55 Freq: Status: Active Protocol: Document 02/16/20 12:55 CGR (Rec: 02/16/20 13:15 CGR [email or web address]) OT Gross Range of Motion Upper Extremity Range of Motion Assessment Within Functional Limits OT Strength Upper Extremity Strength Assessment Within Functional Limits OT- Coordination Assessment Upper Extremity Finger to Nose Test Within Functional Limits Finger Tapping Test Within Functional Limits OT-Muscle Tone Assessment Muscle Tone WNL Yes OT Sensation Assessment Edema Edema Absent M9 OT- IP Assessment and Plan Start: 02/16/20 12:55 Freq: Status: Active Protocol: Document 02/17/20 13:50 CGR (Rec: 02/17/20 13:56 CGR [email or web address]) OT Summary Assessment and Plan Potential Rehabilitation Potential Good Analytic Complexity at Evaluation Low Summary OT Impairments Pain,Functional Cognition, Functional Mobility,Toileting, Bathing,Toilet Transfers, Shower Transfers,Activity Tolerance Progress Towards Goals Slow Progress due to Pain Assessment Summary Pt presents as a low complexity evaluation s/p admit for L2-5 Lami. Pt is progressing with therapy services and performs mobility on this date with SBA using walker. Pt educated on home safety, LB dressing, and shower. Pt planned for d/c home today. Goals Grooming Goal Independent Dressing Goal Independent Toileting Goal Independent Bathing Goal Independent Toilet Transfer Goal Independent Shower Transfer Goal Independent Frequency of Treatment Frequency Of Treatment Once a Day Treatment Plan OT Treatment Plan ADL Training,Functional Cognition Training,Functional Mobility,Patient/Family Education,Discharge Planning Discharge Recommendations OT Discharge Recommendations Home with Assistance Home Equipment Needs shower seat, grab bars Transportation Needs at Discharge Private Vehicle
--- NOTE | 2020-02-17 13:43 | PC.NURSE ---
Pt alert and oriented. Pt eager to go home. Took Tele off I'm going home and it's hard on my skin. Dr. Torres here discussing plan of care and writing orders. Pt given Decadron IV and ordered meds. Friend in to mushroom picker Pt, hear discharge instructions and assist Pt at home. Pt has been up and down several times to Bathroom and to have shower. Pt contamination consultant light throughout morning, declining advise and refusing help at d/c when getting in the car.
== END 2020-02-17 12:40 | disposition home or self-care (01) | DRG 454 ==
LOC: OR 13:54 → AC 13:54
PROVIDERS: Internal Medicine; Admitting Provider Orthopaedic Surgery; PCP Family Medicine; Referring Provider Orthopaedic Surgery; Visit Provider Orthopaedic Surgery
DX: M48.062 Spinal stenosis, lumbar region with neurogenic claudication (principal); F11.20 Opioid dependence, uncomplicated; M41.85 Other forms of scoliosis, thoracolumbar region; M43.16 Spondylolisthesis, lumbar region; G89.18 Other acute postprocedural pain; R00.0 Tachycardia, unspecified; R50.82 Postprocedural fever; M79.7 Fibromyalgia; I10 Essential (primary) hypertension; E78.5 Hyperlipidemia, unspecified; F32.9 Major depressive disorder, single episode, unspecified; E03.9 Hypothyroidism, unspecified; F41.9 Anxiety disorder, unspecified; Z20.828 Contact with and (suspected) exposure to other viral communicable diseases
CPT/HCPCS: 36415; 72100; 76000; 80048; 80053; 81001; 82550; 82553; 83735; 84145; 84443; 84484; 85014; 85018; 85025; 87635; 93005; 93010; 94762; 97116; 97161; 97165; 97535; C1776; J0330; J0595; J0690; J1100; J1170; J2250; J2274; J2405; J2704; J3010

== ENCOUNTER 2022-06-17 08:14 | Inpatient (IN) | payer MEDICARE, OTHER, SELFPAY ==
[2020-02-15 13:52] VITALS: BMI 26.9
[2022-06-05 09:28] VITALS: BMI 25.6
[2022-06-17] VITALS (7 sets, daily range): BP systolic 123–163; BP diastolic 62–91; PULSE 76–108; RESP 10–20; TEMP 36.6–36.7; O2SAT 95–99; BMI 25.6
--- NOTE | 2022-06-17 06:00 | DI.RAD.S_ITS ---
PROCEDURE: XR SHOULDER LT 1V INDICATIONS: RTSA TECHNIQUE: 1 views of the shoulder were acquired. COMPARISON: None. FINDINGS: Bones: Patient is status post reverse left shoulder arthroplasty. Shoulder alignment is anatomic. No fractures or dislocations. No suspicious bony lesions. Visualized ribs appear intact. Soft tissues: Expected postsurgical changes are seen in left shoulder soft tissue. No suspicious soft tissue calcifications. IMPRESSION: Postop changes from reverse left shoulder arthroplasty with anatomic shoulder alignment. Dictated by: Sunil Mckinley M.D. on 06/17/2022 at 12:55 Approved by: Sunil Mckinley M.D. on 06/17/2022 at 12:56
[2022-06-17] MEDS: LACTATED RINGERS 1,000 ML 42 ML IV (09:03)
[2022-06-17] MEDS: ACETAMINOPHEN 325 MG TABLET 975 MG PO (09:03)
[2022-06-17 09:21] LABS: COVID19 -Nasal RAPID Negative (Negative)
--- NOTE | 2022-06-17 09:35 | PM.PREOP ---
Pre-operative Note COVID-19 COVID-19 status: Negative Result date/Date tested (Pos, Neg/Pending): 06/17/22 Interval Note History & Physical reviewed/Exam performed by Physician: Yes Changes to H&P: No
--- NOTE | 2022-06-17 10:11 | SUR.PREOP ---
Block start time [1000] . Monitoring initiated and maintained throughout procedure. Oxygen and medications given by anesthesiologist instructions. Patient remained stable throughout procedure, no adverse reactions noted. Block end time [1010].
[2022-06-17] MEDS: CEFAZOLIN 2 GM/100 ML PREMIX 100 ML IV (10:18)
--- NOTE | 2022-06-17 10:40 | SUR.OPER ---
Beach chair with Micah/Nat shoulder positioner. Lower body on padded OR bed. Head in foam padded head cradle, secured with straps. Non-operative arm secured <90 degrees abduction. Pillow under knees. Safety belt at thigh. Cloth tape over blanket over lower legs.
[2022-06-17] MEDS: TRANEXAMIC ACID 1,000 MG VIAL 2000 MG INJ ×2 (10:47→11:37)
[2022-06-17] MEDS: BUPIVACAINE 0.5% (PF) 30 ML, EPINEPHrine 0.15 MG INJ (10:50)
--- NOTE | 2022-06-17 12:40 | SUR.PHASEI ---
Dr Ramachandran to bedside. Evaluated patient. Pt denies pain, nausea. Left arm and shoulder numb and tingling. HR 105-108 ST. No new orders at this time. Ok to transfer to bed.
--- NOTE | 2022-06-17 13:10 | SUR.PHASEI ---
Pt transferred 213 in bed by this RN. Pt HR 84 - 100 prior to transfer. Regular. Denies pain. Alert, oriented. Transferred iwth 1 belongings bag and 1 personal bag.
[2022-06-17] MEDS: LACTATED RINGERS 1,000 ML 100 ML IV (13:20)
[2022-06-17] MEDS: ACETAMINOPHEN 325 MG TABLET 650 MG PO (13:22)
--- NOTE | 2022-06-17 16:39 | P.OP_ITS ---
Operative Date/Time/Diagnoses Date of procedure: 06/17/22 Time of procedure: 11:55 Pre-op diagnosis: Left shoulder osteoarthritis Post-op diagnosis: same Procedure & Clinicians Procedure: Left reverse total shoulder replacement Same procedure as scheduled: Yes Indications: The patient has had progressively worsening left shoulder pain with radiographic changes consistent with arthritis. Non-operative management has failed and the patient has requested total shoulder replacement. The risks, benefits and alternatives to surgery were discussed with the patient prior to proceeding. Risks discussed included, but were not limited to, failure to relieve pain, stiffness, infection, nerve damage, deep venous thrombosis, pulmonary embolism, stroke, coma, heart attack, permanent paralysis and , as well as the potential need for eventual revision of the prosthetic. A reverse total shoulder will be performed due to the patient's age and some rotator cuff pathology noted on her MRI. Surgeon: Cheo Bustos Dump Motor Operator: Giuliana Nguyễn Anesthesia Type: General, Peripheral nerve block and Local Operative Notes Findings: Severe osteoarthritis of the left shoulder with fraying of the rotator cuff. Closure Type: primary Specimen(s): none sent Prosthetic devices, grafts, tissues, transplants, or devices: Implants used in this procedure manufactured by the [employer] and included an RSP total shoulder system with a 30 mm screw length glenoid base plate, 4 peripheral locking screws measuring 30 mm, 26 mm, 14 mm and 14 mm in length, a 32 mm-4 mm glenoid head with retaining screw, a 10 mm small shell humeral stem with a 32 mm E plus neutral cup. Applied: implant(s) Estimated Blood Loss (mL): 100 Blood products transfused: none Tourniquet time (min): 0 Procedure in detail: The patient was seen in the preoperative area where they identified the left shoulder as the operative site and this was marked with my initials. They received preoperative antibiotics and underwent the induction of an interscalene block. They were taken to the operating room and placed on the operating room table in a supine position with the underwent the induction of a general anesthetic. There were then repositioned in the ?beach chair? position using a dedicated positioner. All pressure points were well padded. The knees were slightly bent to prevent tension on the sciatic nerves. A realtime court reporter-out was performed. The left arm was prepared from the fingertips to the base of the neck with ChloraPrep in the usual fashion and draped through sterile drapes. An approximately 15 cm incision was created starting at the clavicle just above the coracoid and going to the deltoid insertion. The deltopectoral interval was used to access the shoulder taking the vein to the medial side. The vein was protected throughout the case. The upper 1 cm of the pectoralis major was released. The biceps tendon was identified and used as a guide to releasing the remaining subscapularis. The biceps itself was tenodesed over the pectoralis tendon using a suture. The subscapularis was tagged for later repair. The shoulder was dislocated and a proximal humeral osteotomy performed using an extramedullary guide. A proximal humeral protector was then placed. Retractors were placed access the glenoid. A 360 degree release was performed of the remaining subscapularis with care being taken to protect the axillary nerve. The soft tissues were removed circumferentially around the glenoid. The guide was used to drill the guide hole in the center of the inferior glenoid. The tap was placed and used as a guide for the reamer. The tap was then removed and the glenoid base plate inserted. The peripheral locking screws were then placed through the appropriate guide. A trial glenoid head was applied. We then turned our attention to the humerus. The proximal humeral protector was removed. Cylindrical reamers were used to size the canal. Broaching was then performed beginning with a small broach and working up until a line to line fit with the reamer was obtained. The guide for the proximal metaphyseal reamer was then applied and the metaphysis was reamed appropriately. The trial metaphyseal portion of the body was then applied to the broach. Trial reductions were performed and the size of the glenoid head and the cup were optimized. Stability was checked in maximal internal and external rotation and range of motion was checked to allow access to the top of the head, internal rotation to an excess of 50? in the ?scarecrow position? and the ability to reach the groin. The appropriate final prosthetic components were then opened. The glenoid head was impacted into position and checked for rotational and axial stability before placing the set screw. Drill holes for repair of the subscapularis were performed and sutures placed. The humeral prosthetic was then impacted into position. The humeral cup was placed. The joint was relocated and irrigated. The subscapularis was repaired to the previously placed sutures. A deep drain was placed. The deltopectoral interval was reapproximated with 0 Vicryl. Subcutaneous layer was closed with interrupted 3-0 Vicryl and skin with a running 3 0 V lock suture and Dermabond. Subcutaneous tissues were then infiltrated with 0.5% Marcaine for postoperative pain control. An Aquacel Ag dressing was applied and the patient's arm was placed in a sling. The patient was then transferred to the recovery room in good condition having tolerated the procedure well. The services of a skilled surgical services coordinator were required during this procedure to provide positioning, exposure and retraction to protect vital structures. Without the services of Ms. Nguyễn, the procedure could not have been completed in a safe, expedient fashion. Complications: none Post-operative Condition: stable Disposition: PACU Plan for aftercare: The patient will be allowed to do pendulum exercises and use her hand in front of her body below shoulder level to lift 1-2 lb for 6 weeks. She will then be advanced with physical therapy. She will likely be discharged tomorrow.
--- NOTE | 2022-06-17 17:24 | PM.DS.1 ---
History of Present Illness History of Present Illness Date Patient Seen: 06/17/22 Time Patient Seen: 17:24 Chief complaint: INPT Narrative: Patient is complaining of [id number] left shoulder pain. She is experiencing numbness in her thumb pointer and half of her middle finger on the left side. She is working with physical therapy. Overall she is feeling well and would like to be discharged home today. Discharge Providers Provider Date of admission: 06/17/22 08:14 Discharge Date: 06/17/22 Primary care physician: Huang Martinez MD Consults: 06/17/22 12:58 Consult to Discharge Planning Routine Comment: Consult to Physical Therapy Evaluate & Treat Comment: Physician Instructions: pendulums only. 06/17/22 15:36 Consult to Occupational Therapy Evaluate & Treat Comment: Physician Instructions: Evaluate and treat Discharge provider: Giuliana Nguyễn PA-C Summary Hospital Course Discharge Diagnosis: Left shoulder osteoarthritis Hospital Course: Operative Date/Time/Diagnoses Date of procedure: 06/17/22 Time of procedure: 11:55 Procedure & Clinicians Procedure: Left reverse total shoulder replacement Same procedure as scheduled: Yes Indications: The patient has had progressively worsening left shoulder pain with radiographic changes consistent with arthritis. Non-operative management has failed and the patient has requested total shoulder replacement. The risks, benefits and alternatives to surgery were discussed with the patient prior to proceeding. Risks discussed included, but were not limited to, failure to relieve pain, stiffness, infection, nerve damage, deep venous thrombosis, pulmonary embolism, stroke, coma, heart attack, permanent paralysis and , as well as the potential need for eventual revision of the prosthetic.? A reverse total shoulder will be performed due to the patient's age and some rotator cuff pathology noted on her MRI. Surgeon: Cheo Bustos Shorts Sifter: Giuliana Nguyễn Anesthesia Type: General, Peripheral nerve block and Local Operative Notes Findings: Severe osteoarthritis of the left shoulder with fraying of the rotator cuff. Closure Type: primary Specimen(s): none sent Prosthetic devices, grafts, tissues, transplants, or devices: Implants used in this procedure manufactured by the [employer] and included an RSP total shoulder system with a 30 mm screw length glenoid base plate, 4 peripheral locking screws measuring 30 mm, 26 mm, 14 mm and 14 mm in length, a 32 mm-4 mm glenoid head with retaining screw, a 10 mm small shell humeral stem with a 32 mm E plus neutral cup. Applied: implant(s) Estimated Blood Loss (mL): 100 Blood products transfused: none Tourniquet time (min): 0 Status at Discharge Cognitive/behavioral status at discharge: at baseline, oriented Overall status at discharge: patient is progressing back to baseline Exam Vital Signs (past 8 hours): - 06/17/22 12:15 06/17/22 12:26 06/17/22 12:20 Temperature 98.1 F Pulse Rate 92 H 102 H 85 Respiratory Rate 10 L 12 15 Blood Pressure 123/68 124/75 156/91 H Pulse Oximetry 96 95 95 Oxygen Delivery Method Room Air Room Air Room Air 06/17/22 12:30 06/17/22 12:35 06/17/22 12:50 Temperature 97.8 F Pulse Rate 108 H 106 H 84 Respiratory Rate 17 14 12 Blood Pressure 161/62 H 150/65 H 163/68 H Pulse Oximetry 95 95 97 Oxygen Delivery Method Room Air Room Air Room Air 06/17/22 14:30 Temperature Pulse Rate Respiratory Rate Blood Pressure Pulse Oximetry Oxygen Delivery Method Room Air Oxygen Delivery Method Room Air Narrative Exam Narrative: Pleasant 72-year-old female, resting comfortably on her bed, no acute distress. She is working with physical therapy. Left shoulder dressing is clean, dry, intact. No surrounding erythema, induration, or rl pus. Bilateral upper extremity: Strength is grossly intact, sensation is decreased in her left thumb, ring and part of her middle finger. Objective Labs Labs: Laboratory Results - last 24 hr 06/17/22 08:58 SARS-CoV-2 (PCR) Negative [facility] Medical History Arthritis Compression fracture Depression with anxiety Easy bruisability History of Mohs micrographic surgery for skin cancer HLD (hyperlipidemia) HTN (hypertension) Hypothyroid Leg fracture, right Osteoarthritis PAC (premature atrial contraction) Sciatica Skin cancer TMJ (temporomandibular joint syndrome) Surgical History History of arthroplasty of left knee (2018) History of hysterectomy (~1999) History of lumbar spinal fusion (02/15/20) History of tonsillectomy and adenoidectomy Hx of bilateral cataract extraction (~2014) Hx of fusion of cervical spine (~1996) Family History Mother Multiple sclerosis Father No problems noted. Social History household members: spouse Smoking Status: Never smoker alcohol intake: current Discharge Assessment & Plan Assessment and Plan Assessment: -stable status post reverse left total shoulder arthroplasty Plan of Treatment: -mobilize with PT/OT. Maintain reverse total shoulder precautions -continue with multimodal pain management. The patient has her prescriptions at home -aspirin 81 mg b.i.d. x4 weeks for DVT prophylaxis -DC home once cleared by PT/OT Discharge Plan Discharge Plan Patient Disposition: Home Discharge orders & Medications Prescriptions: New oxycodone 5 mg Tablet See Rx Instructions .ROUTE .COMPLEX PRN (Reason: Pain, Moderate (4-6)) Qty: 42 0RF Rx Instructions: Take 1-2 tablets by mouth every 4 hours as needed for moderate to severe postop pain docusate sodium 100 mg Capsule 100 mg PO BID PRN (Reason: constipation) Qty: 30 0RF polyethylene glycol 3350 17 gram Powder In Packet 17 g PO BID PRN (Reason: constipation) Qty: 30 0RF aspirin 81 mg Tablet,Delayed Release (Dr/Ec) 81 mg PO BID 28 Days Qty: 56 0RF Rx Instructions: Prevent blood clots Continued gabapentin 600 mg Tablet 1,200 mg PO BID felodipine 2.5 mg Tablet Extended Release 24 Hr 2.5 mg PO DAILY simvastatin 10 mg Tablet 10 mg PO DAILY fluticasone propionate 50 mcg/actuation [place],Suspension 2 spray INTRANASAL BID vitamin A-vitamin C-vit E-min Tablet 1 tab PO DAILY bupropion HCl 150 mg Tablet Extended Release 24 Hr 150 mg PO QAM levothyroxine 137 mcg Capsule 137 mcg PO DAILY docusate sodium [DOK] 100 mg Capsule 100 mg PO BID PRN (Reason: constipation) Qty: 30 0RF PreserVision AREDS-2 250-90-40-1 mg Capsule 1 tab PO BID Changed acetaminophen 500 mg Tablet 1,000 mg PO TID MDD Max 3000 mg per day PRN (Reason: fever or pain) Qty: 90 0RF Discontinued oxycodone-acetaminophen [Percocet] 5-325 mg Tablet 1 tab PO TID PRN (Reason: Pain) Follow up/Referrals: Huang Martinez MD [Primary Care Provider] - Cheo Bustos MD [Physician] - As previously scheduled (Follow up Raciel Rand PA-C, with 07/01/2022 @ 9:00 am at [facility] office in [place].) Diet/Activity/Treatments Diet: Diet as Tolerated Other treatments: Medications: -Aspirin 81mg twice daily x4 weeks to prevent blood clots. -OTC Tylenol 500 mg 1 tablet every 4 hours as needed for pain/fever. Max 6 tablets per day. -Oxycodone 5 mg take 1-2 tablets every 4 hours as needed for moderate-severe pain (narcotic pain medication). -As needed medications: -Ducolax and /or MiraLax as needed for constipation from narcotic pain medications. -Pepcid AC as needed for stomach upset (usually from aspirin or ibuprofen). Dressing/Wound care: -Keep Aquacell dressing in place until postoperative follow-up office visit. -Okay to shower. Keep wound out of direct water stream. No soaking or submerging until all the scabs fall off (approximately 6 weeks). -Please call the office if dressing becomes wet, soiled, or saturated. Activities: -Maintain standard reverse total shoulder protocol: -OK to use your hand in front of your body, below shoulder level; ok to lift 1-2 lb for the first several weeks. Your activities will be advanced by physical therapy. -Continue with sling. -Continue with home exercises as directed by your physical therapist, including Codman/pendulum and elbow exercises. -Ice your incision as needed for pain/inflammation/swelling. Protect your skin with a folded pillowcase. -Incentive Spirometer (breathing device from hospital): 5-10xs every hour while awake for the first 1-2 weeks. Follow-up: -Follow-up with your surgeon or PA in the office in 10-14 days after surgery. -Follow-up with your surgeon 6 weeks postoperatively. Call the office if you have chest pain, shortness of breath, significant swelling that will not resolve with elevating, fever over 101?, significantly worsening pain, or are concerned you might need to go to the Emergency Room. [facility]: [phone] Skin/Wound/Dressing Care Report to your healthcare provider any signs of infection, such as:: chills, fever, night sweats, unusual drainage and unusual redness Dressing: May shower. Leave Aquacel dressing in place until follow up in office. No bathing or otherwise soaking incision. Call the office if the dressing becomes saturated inside. Visit Report/Discharge Packet Instructions: DI for Shoulder Replacement Stand Alone Forms: Patient Portal/API, Stroke Signs & Symptoms, Surgery Discharge Discharge Data Primary Care Provider: Huang Martinez VTE Deep Vein Thrombosis/Pulmonary Embolism Present on Admission: No
--- NOTE | 2022-06-17 18:10 | PT.IIE ---
Current Diagnoses Primary osteoarthritis, left shoulder (06/17/22) Surgery Performed Operation Date: 06/17/22 10:00 Actual Procedures p Total Shoulder Arthroplasty - Reverse(Left) - Cheo Bustos MD Surgical History (Last Reviewed 06/17/22 @ 17:26 by Giuliana Nguyễn PA-C) History of arthroplasty of left knee (2019) History of hysterectomy (~1999) History of lumbar spinal fusion (02/15/20) History of tonsillectomy and adenoidectomy Hx of bilateral cataract extraction (~2014) Hx of fusion of cervical spine (~1996) Medical History (Last Reviewed 06/17/22 @ 17:26 by Giuliana Nguyễn PA-C) Arthritis Compression fracture Depression with anxiety Easy bruisability History of Mohs micrographic surgery for skin cancer HLD (hyperlipidemia) HTN (hypertension) Hypothyroid Leg fracture, right Osteoarthritis PAC (premature atrial contraction) Sciatica Skin cancer TMJ (temporomandibular joint syndrome) Physical Therapy Inpatient Evaluation/Re-Eval M1 PT/OT-IP Prior Functional Status Start: 06/17/22 17:59 Freq: NEEDED Status: Active Protocol: Document 06/17/22 18:00 [facility] (Rec: 06/17/22 18:10 [facility] [id number]) Medical Review Prior Functional Status Medical History Reviewed Yes Diet/Fluid Consistency Regular Communication WNL Mobility and Gait indep w/o AD Activities of Daily Living and IADL's indep w/all ADLs and typically does yard work (has 5 acres) Social History Household Members spouse Living Arrangements House Number of Floors (Floors) One Floor Number of Stairs To Enter/Railing? 2 JENNIFER w/rail R side Home Environment Standard Height Toilet,High Toilet,Walk in Shower Home Equipment Straight Cane,Shower Seat with Backrest,Hand Held Shower, Grab Bars In Shower Employment Status Retired M2 PT-IP Current Condition Start: 06/17/22 17:59 Freq: NEEDED Status: Active Protocol: Document 06/17/22 18:00 [facility] (Rec: 06/17/22 18:10 [facility] [id number]) Physical Therapy Current Condition Current Condition Evaluation Date 06/17/22 Treatment Diagnosis L reverse TSA Onset Date 06/17/22 M3 PT-IP Subjective Start: 06/17/22 17:59 Freq: NEEDED Status: Active Protocol: Document 06/17/22 18:00 [facility] (Rec: 06/17/22 18:10 [facility] [id number]) Subjective Physical Therapy Visit Type Type Initial Evaluation Visit Start Time 16:54 Visit Stop Time 17:50 Total Visit Minutes 56 Number of SENIOR FIRE PROTECTION ENGINEER Visits 0 Physical Therapy Visit Comments Patient Goals to go home tonight M4 PT-IP Mobility and Gait Start: 06/17/22 17:59 Freq: NEEDED Status: Active Protocol: Document 06/17/22 18:00 [facility] (Rec: 06/17/22 18:10 [facility] [id number]) PT-Bed Mobility Assessment Supine to Sit Supine to Sit Independent Scooting Scooting to Edge of Bed Independent Scooting Up and Down in Bed Independent PT-Transfer Assessment Sit to and From Stand Sit to and from Stand Independent,Use of Upper Extremities Equipment Transfer Assistive Device Gait Belt Orthotic/Prosthetic Devices or Brace: Yes Gait Assessment Gait Gait Assistance Required: Standby Assistance Distance (Feet) 150 Able to Maintain Weight Bearing Status Yes During Gait Assistive Devices Assistive Device Gait Belt Orthotic/Prosthetic Devices or Brace: Yes Gait Deviations General Gait Pattern Within Normal Limits Stair Climbing Assessment Evaluation Level of Assist On Stairs Standby Assistance Devices Stair Climbing Assistive Devices Right Railing Technique/Endurance Stair Climbing Direction Ascend and Descend Stair Climbing Technique Step Over Step,Step to Step Number of Steps Climbed 3 Query Text: Stair Climbing Set # Repetitions (reps) 1 Comments Stair Climbing Comments up steps recip w/R rail R hand ; R hand and sidestep step to down steps SBA PT-Balance Assessment Sitting Balance and Reactions Static Sitting Balance Ability Normal Dynamic Sitting Balance Ability Normal Standing Balance and Reactions Static Standing Balance Ability Normal Dynamic Standing Balance Ability Normal M5 PT-IP Objective Assessments Start: 06/17/22 17:59 Freq: NEEDED Status: Active Protocol: Document 06/17/22 18:00 [facility] (Rec: 06/17/22 18:10 [facility] [id number]) Orientation Orientation/Cognition Level of Alertness Alert Language Function Ability No Deficits Noted Safety Awareness Understands Safety Issues Memory Description No Deficits Noted Gross Range of Motion Upper Extremity ROM Assessment Left Impaired Lower Extremity ROM Assessment Within Functional Limits Strength Upper Extremity Strength Assessment Left Impaired Lower Extremity Strength Assessment Within Functional Limits M6 PT-IP Treatment Start: 06/17/22 17:59 Freq: NEEDED Status: Active Protocol: Document 06/17/22 18:00 [facility] (Rec: 06/17/22 18:10 [facility] [id number]) Physical Therapy Treatment Exercises Exercises Shoulder Pendulums,Elbow Flexion/Extension,Wrist ROM, Hand ROM Education Education Provided Precautions,Weight Bearing Status,Post-Op Packet,Safety Brace Education [place],Patient Other Treatments Other Treatment Performed pt dressed w/PT cueing for underwear, pants, aminah, tshirt , and long sleeve; donned and doffed brace w/PT cues M7 PT-IP Assessment and Plan Start: 06/17/22 17:59 Freq: NEEDED Status: Active Protocol: Document 06/17/22 18:00 [facility] (Rec: 06/17/22 18:10 [facility] [id number]) PT Summary Assessment and Plan Potential Rehabilitation Potential Excellent Status of Condition at Evaluation Evolving Summary Impairments Pain,ROM,Strength,Activity Tolerance Assessment Summary Pt presents day of L reverse TSA w/ good pain tolerance and mobility. She did well with all mobility and is very careful re: her precautiosn and double checked w/PT for all motions to make sure she would not hurt the surgery. pt demonstrated good understanding of exercises, and dressing and amb and did stairs well so is DC from PT and is safe to DC once medically stable. Frequency of Treatment Frequency Of Treatment Discharge Treatment Plan Physical Therapy Treatment Plan Bed Mobility Training,Transfer Training,Gait Training, Therapeutic Exercise,Post Op Education,Discharge Planning Precautions Shoulder Precautions Sling,PROM,Internal Rotation to Body,No External Rotation, No Abduction,Forward Flexion to 90 degrees,Pendulums Recommendations To Nursing Amount of Assist Needed Standby Assistance Discharge Recommendations PT Discharge Recommendations Home with Assistance, Outpatient PT Transportation Needs at Discharge Private Vehicle
== END 2022-06-17 18:50 | disposition home or self-care (01) | DRG 483 ==
PROVIDERS: Admitting Provider Orthopaedic Surgery; PCP Family Medicine; Referring Provider Orthopaedic Surgery; Visit Provider Orthopaedic Surgery
PROC: 0RRK00Z Replacement of Left Shoulder Joint with Reverse Ball and Socket Synthetic Substitute, Open Approach (ICD-10-PCS; CPT 23472; principal; 2022-06-17 10:00)
DX: M19.012 Primary osteoarthritis, left shoulder (principal); E78.5 Hyperlipidemia, unspecified; E03.9 Hypothyroidism, unspecified; F17.210 Nicotine dependence, cigarettes, uncomplicated; Z20.822 Contact with and (suspected) exposure to COVID-19
CPT/HCPCS: 64415; 73020; 87635; 97162; 97530; 97535; C1776; C9803; J0171; J0690; J1100; J2250; J2405; J2704; J3010